=== PATIENT | female | born 1980 | race Caucasian/White ===

== ENCOUNTER 2017-03-06 21:13 | Observation (INO) ==
[2017-03-06] MEDS ORDERED: Nitroglycerin 0.4 MG TAB.SUBL SL ONE (21:46)
[2017-03-06] MEDS ORDERED: Aspirin 81 MG TAB.CHEW PO ONE (21:46)
--- NOTE | 2017-03-06 21:51 | Emergency Department Note ---
Disposition Clinical Impression: Chest heaviness, Swelling of lower extremity, Unstable angina Disposition: Admitted As Inpatient Condition: Fair Time of Disposition: 23:51 Chest Pain HPI - General Chief Complaint: ED Chest Pain Stated Complaint: chest heaviness, bilateral LE swelling Time Seen by Provider: 03/06/17 21:29 Source: patient Mode of arrival: ambulatory Limitations: no limitations Vital Signs Reviewed: Yes Nursing Notes Reviewed: Yes - History of Present Illness HPI Narrative: 36-year-old female history of COPD presents for evaluation of chest heaviness as well as bilateral lower extremity swelling. Notes chest heaviness since approximately today. Heaviness does not radiate. No nausea vomiting diaphoresis. Heaviness is worse with exertion and slightly resolves with rest. Patient reports some dyspnea. No fevers or cough. Does have history of COPD. Patient states she has had bilateral lower summary swelling for the past couple days. States that she did receive Lasix in the past however on a temporary basis. Denies history of recent travel. No active cancers. No history of DVT or PE. Denies history of heart attack. Severity scale (1-10): 4 - Related Data Home Medications Medication Instructions Recorded Confirmed Citalopram Hydrobromide [Celexa] 20 mg PO DAILY 03/07/17 03/07/17 OxyCODONE/APAP 10/325 [Percocet 1 each PO Q8HR PRN 03/07/17 03/07/17 10/325 MG] Pregabalin [Lyrica] 150 mg PO TID 03/07/17 03/07/17 PriLOSEC PO DAILY 03/07/17 carBAMazepine [Tegretol] 400 mg PO BID 03/07/17 03/07/17 Allergies Allergy/AdvReac Type Severity Reaction Status Date / Time codeine AdvReac Difficulty Verified 04/26/16 20:54 Breathing morphine AdvReac Difficulty Verified 03/07/17 03:41 Breathing NSAIDS (Non-Steroidal AdvReac See Verified 03/07/17 03:41 Anti-Inflamma Comments Sulfa (Sulfonamide AdvReac Difficulty Verified 04/26/16 20:54 Antibiotics) Breathing All systems ED: reviewed and negative except as stated. Constitutional: Reports: as per HPI. Denies: fever Eyes: Reports: as per HPI ENT ED: Reports: as per HPI Cardiovascular: Reports: as per HPI, chest pain Respiratory: Reports: as per HPI, dyspnea. Denies: cough, sputum production Gastrointestinal: Reports: as per HPI. Denies: nausea, vomiting Genitourinary: Reports: as per HPI Musculoskeletal: Reports: as per HPI, back pain Integumentary: Reports: as per HPI Neurological: Reports: as per HPI Psychiatric: Reports: as per HPI Endocrine: Reports: as per HPI Hematological/Lymphatic: Reports: as per HPI Allergic/Immunologic: Reports: as per HPI Chest Pain PMH - Past Medical History Medical history: Reports: kidney stones, myocardial infarction Psychiatric history: Reports: no psych history - Social History Smoking Status: Current every day smoker Alcohol use: Reports: rarely Drug use: Reports: none Physical Exam - General Limitations: no limitations General appearance: alert, in no apparent distress - Head Head exam: atraumatic, normocephalic - Eye Eye exam: Present: normal appearance, EOMI - ENT ENT exam: normal exam, normal oropharynx - Neck Neck exam: Present: normal inspection - Chest Chest inspection: Present: normal inspection, symmetric chest wall rise. Absent : tenderness - Respiratory Respiratory exam: Present: normal lung sounds bilaterally. Absent: respiratory distress - Cardiovascular Cardiovascular exam: Present: regular rate, normal rhythm - Abdominal Exam Abdominal exam: Present: soft, Non-Tender - Extremities Exam Extremities exam: Present: normal inspection, pedal edema (Trace bilateral) - Expanded Lower Extremity Exam Neurovascular/Tendon exam: Present: normal capillary refill - Back Exam Back exam: Present: normal inspection - Neurological Exam Neurological exam: Present: alert, oriented X3 - Skin Skin exam: Present: warm, dry, intact, normal color Course Course Narrative: Patient seen and examined. Patient appears in no acute distress. Patient will get cardiopulmonary evaluation. Patient's EKG does show some T-wave inversions in the anterior precordial leads. Appears somewhat similar to prior EKG however they appear more prominent on today's EKG. Patient symptoms started greater than 6 hours ago. Patient will get a troponin, chest x-ray labs. Given the EKG findings patient also get a d-dimer she is low risk. - Reevaluation(s) Reevaluation #1: Patient pain was relieved with 1 nitro. Time: 22:24 Reevaluation #2: Paged hospitalist. Awaiting callback. Time: 23:04 Reevaluation #3: Patient's resting comfortably. Patient is pain-free. Discussed plan of care. Patient is in agreement. Time: 23:48 Additional Reevaluation(s): 0109: Patient is requesting her home pain medicine for her knee. That was ordered. Patient awaiting admission to the floor. Vital Signs Temperature 97.9 F 03/06/17 21:14 Pulse Rate 65 03/06/17 21:14 Respiratory Rate 18 03/06/17 21:14 Blood Pressure 126/78 03/06/17 21:14 O2 Sat by Pulse Oximetry 100 03/06/17 21:14 Temperature 98.1 F 03/07/17 06:52 Pulse Rate 59 03/07/17 06:52 Respiratory Rate 16 03/07/17 06:52 Blood Pressure 116/78 03/07/17 06:52 O2 Sat by Pulse Oximetry 94 03/07/17 06:52 Oxygen Delivery Oxygen Delivery Room Air Chest Pain - MDM Narrative Medical decision making narrative: 36-year-old female with a history of COPD, obesity presents for evaluation of chest heaviness. Patient states she has had intermittent heaviness throughout the day. Notes worsening chest heaviness with exertion but does not completely resolve with rest. No nausea vomiting or diaphoresis. Patient also notes some dyspnea. Patient's EKG shows inverted T waves in V1 through V4. Patient had prior T-wave inversions but appear significantly worse with ST depression isolated in V3. Patient was given aspirin as well as 1 nitroglycerin. Patient states that her symptoms improved following one nitroglycerin. Patient also had a d-dimer which was ordered and negative. Patient is low risk [place]. D- dimer was ordered as the patient is low risk and has had anterior ischemic changes on EKG. Patient's troponin was negative. However the patient's been having intermittent chest heaviness and has not been constant for several hours. Patient's chest x-ray shows pulmonary venous congestion. Given the patient's symptoms as well as EKG changes and risk factors the patient's heart scores of 5 and recommended for further cardiac evaluation. Patient is agreeable with this plan of care. Patient was pain-free in the emergency department or to transfer to the hospital floor. - Lab Data Lab results reviewed: Yes I reviewed the patient's lab results. Result diagrams: 03/07/17 05:42 03/07/17 05:42 Lab Results 03/06/17 03/06/17 03/06/17 Range/Units 21:40 21:40 21:40 WBC 5.0 (4.3-11.1) K/mcL RBC 4.41 (3.82-4.97) M/mcL Hgb 13.3 (11.5-15.4) g/dL Hct 40.2 (35.3-44.9) % MCV 91.2 (83.0-100.0) fL MCH 30.2 (28.0-33.3) pg MCHC 33.1 (31.6-35.5) g/dL RDW 12.5 (11.5-14.5) % Plt Count 210 (140-400) K/mcL MPV 10.7 (9.4-12.4) fL Immature Gran % 0.2 (0-4) % Seg Neutrophils % 34.7 % Lymphocytes % 51.8 % Monocytes % 7.5 % Eosinophils % 4.6 % Basophils % 1.2 % Neutrophils # 1.8 (1.6-8.9) K/mcL Lymphocytes # 2.6 (0.6-4.6) K/mcL Monocytes # 0.4 (0.0-1.3) K/mcL Eosinophils # 0.2 (0.0-0.6) K/mcL Basophils # 0.1 (0.0-0.2) K/mcL D-Dimer 435 (0-500) ng/mLFEU Sodium (136-145) mEq/L Potassium (3.5-4.5) mEq/L Chloride (98-109) mEq/L Carbon Dioxide (19-29) mEq/L BUN (7-20) mg/dL Creatinine (0.57-1.11) mg/dL Est GFR ( Amer) (> 60) Est GFR (Non-Af Amer) (> 60) BUN/Creatinine Ratio (6-26) Glucose (70-99) mg/dL Calculated Osmolality (280-300) Calcium (8.6-10.8) mg/dL Troponin I (0-0.03) ng/mL B-Natriuretic Peptide 52 (0-100) pg/mL 03/06/17 03/06/17 Range/Units 21:40 21:40 WBC (4.3-11.1) K/mcL RBC (3.82-4.97) M/mcL Hgb (11.5-15.4) g/dL Hct (35.3-44.9) % MCV (83.0-100.0) fL MCH (28.0-33.3) pg MCHC (31.6-35.5) g/dL RDW (11.5-14.5) % Plt Count (140-400) K/mcL MPV (9.4-12.4) fL Immature Gran % (0-4) % Seg Neutrophils % % Lymphocytes % % Monocytes % % Eosinophils % % Basophils % % Neutrophils # (1.6-8.9) K/mcL Lymphocytes # (0.6-4.6) K/mcL Monocytes # (0.0-1.3) K/mcL Eosinophils # (0.0-0.6) K/mcL Basophils # (0.0-0.2) K/mcL D-Dimer (0-500) ng/mLFEU Sodium 141 (136-145) mEq/L Potassium 3.7 (3.5-4.5) mEq/L Chloride 105 (98-109) mEq/L Carbon Dioxide 32 H (19-29) mEq/L BUN 6 L (7-20) mg/dL Creatinine 0.73 (0.57-1.11) mg/dL Est GFR ( Amer) > 60 (> 60) Est GFR (Non-Af Amer) > 60 (> 60) BUN/Creatinine Ratio 8 (6-26) Glucose 84 (70-99) mg/dL Calculated Osmolality 289 (280-300) Calcium 8.8 (8.6-10.8) mg/dL Troponin I 0.00 (0-0.03) ng/mL B-Natriuretic Peptide (0-100) pg/mL - Radiology Data Radiology results reviewed: Yes I reviewed the patient's radiology results. Chest X-Ray 03/06/17 21:46 IMPRESSION: Pulmonary findings suggestive of either airway inflammation or mild pulmonary venous congestion. D/ / 03/06/2017 22:48:08 Westley Lovelace MD / bcarter Interpreting Provider: Westley Lovelace MD - EKG Data EKG attestation: Yes I reviewed and interpreted this EKG. EKG shows normal: sinus rhythm Rate: normal Rhythm: NSR [place]/QRS: normal, RBBB, IVCD ST segment depression in: v3 T wave inversions noted in: aVR, v1, v2, v3, v4 Interpretation: no acute changes, unchanged when compared to prior tracing (date ) (2008), nonspecific ST-T wave changes Heart Score - Score History: Highly Suspicious EKG: Significant ST-Depression Age: Less than 45 Risk Factors: 1-2 risk factors Troponin: Less than normal limit HEART Score Total: 5 S.B.ABarbara. - S.Alia.Basilio Situation: Demographics Background: Presenting Complaint Assessment: Vital Signs, Course and respsone to treatment, Pertinant Lab Results Recommendation: Barrier(s) to disposition, Recommendation based on pending studies, treatments, or consults S.B.A.RMckenna Report Given to: Dr. Haim Mireles Repor Time: 00:54 Attestation Statement - Attestation Attestation: I, Diogenes Hirsch MD, personally evaluated this patient and discussed their management with the resident physician. I reviewed the resident's note and agree with the documented findings, medical decision making, and plan of care. 36-year-old female presents to the emergency department with complaint of some substernal chest pressure all day today. The discomfort radiates to the back. There has been some shortness of breath. Some mild nausea but no vomiting. No diaphoresis. No prior cardiac history. Patient does also complain of some swelling of the lower extremities recently and was placed on low-dose Lasix by her PCP with improvement however over the past few days she has had increased swelling in her feet and ankles up to the knees also swelling in her hands and face. On examination patient is a well-developed obese female in no acute distress. She is alert and oriented 3. There is no cyanosis or diaphoresis. Chest is nontender to palpation. Breath sounds are clear and equal bilaterally. Heart regular rate and rhythm. Abdomen soft and nontender with normal bowel sounds. 1+ pedal edema. EKG does show some anterior ST segment depression and T-wave inversion. D- dimer normal. Troponin normal. Chest x-ray consistent with airway inflammation or pulmonary venous congestion. The hospitalist, Dr. Whitmore, was consulted and accepted admission of the patient.
[2017-03-06 22:32] LABS: BUN/Creatinine Ratio 8 (6-26); Blood Urea Nitrogen 6 mg/dL (7-20); Calcium 8.8 mg/dL (8.6-10.8); Carbon Dioxide 32 mEq/L (19-29); Chloride 105 mEq/L (98-109); Glucose 84 mg/dL (70-99); Osmolality,Calculated 289 (280-300); Potassium 3.7 mEq/L (3.5-4.5); Sodium 141 mEq/L (136-145); eGFR For African Americans > 60 (> 60); eGFR For Non-African Americans > 60 (> 60)
[2017-03-06 22:33] LABS: Basophils # 0.1 K/mcL (0.0-0.2); Basophils % 1.2 %; Eosinophils # 0.2 K/mcL (0.0-0.6); Eosinophils % 4.6 %; Hematocrit 40.2 % (35.3-44.9); Hemoglobin 13.3 g/dL (11.5-15.4); Immature Granulocytes % 0.2 % (0-4); Lymphocytes # 2.6 K/mcL (0.6-4.6); Lymphocytes % 51.8 %; Mean Corpuscular HGB Conc 33.1 g/dL (31.6-35.5); Mean Corpuscular Hemoglobin 30.2 pg (28.0-33.3); Mean Corpuscular Volume 91.2 fL (83.0-100.0); Mean Platelet Volume 10.7 fL (9.4-12.4); Monocytes # 0.4 K/mcL (0.0-1.3); Monocytes % 7.5 %; Neutrophils # 1.8 K/mcL (1.6-8.9); Platelet Count 210 K/mcL (140-400); Red Blood Count 4.41 M/mcL (3.82-4.97); Red Cell Distribution Width 12.5 % (11.5-14.5); Segmented Neutrophils % 34.7 %
[2017-03-07] MEDS ORDERED: *HR* HYDROcodone/Acet 10/325 mg TABLET PO ONE (01:09)
--- NOTE | 2017-03-07 03:20 | Internal Med History&Physical ---
Date of Encounter: 03/07/17 Time of Encounter: 03:10 Assessment and Plan (1) Chest pain Current visit: Yes Status: Acute Atypical chest pain - rule out ACS Continue aspirin and statin, nitroglycerin when necessary EKG - sinus rhythm with no acute ST-T changes, T inversion in anterior leads Troponin - negative, trend Chest x-ray - mild pulmonary congestion BN peptide - 52 D-dimer - 435 Echocardiogram and stress test pending Cardiac telemetry, labs in a.m. Qualifiers: Chest pain type: unspecified Qualified Code(s): R07.9 - Chest pain, unspecified (2) Depression with anxiety Current visit: Yes Status: Chronic Continue Celexa (3) Tobacco abuse Current visit: Yes Status: Chronic Counseled about cessation, nicotine patch (4) DVT prophylaxis Current visit: Yes Status: Acute Continue heparin subcutaneous Internal Medicine - H&P: HPI Chief complaint: Chest pain Admitted From: Emergency Dept Plans for Post Hospital Care: Home History of present illness: Ms. Britt is a 36 year old female with past medical history of chronic back pain, anxiety, depression, questionable history of [place] and GERD. She presents to the ED with complaints of left-sided chest pain. On examination patient is awake and alert. Not in any distress. Able to provide history. No family members at bedside. Patient states pain started earlier in the day when she was at home. Describes pain as chest pressure. Mainly on the left side, radiating to the back. Patient states his pain was almost constant. It is only relieved after she came to the ED. No aggravating or alleviating factors. Patient also complains of worsening bilateral lower leg edema. Patient denies shortness of breath, denies palpitations, denies vomiting or diarrhea or fever or headache or dizziness. No other associated symptoms. Initial workup in the ED is negative. Patient is being admitted for chest pain to rule out ACS. She will be continued on aspirin and statin. She will be on nitroglycerin when necessary. Echocardiogram and stress test are pending. Patient has been explained about her condition and plan of care. Understood and agreed. No unanswered questions. CODE STATUS full code. Past Med Surg Social Fam HX - Past Medical History Medical history: arthritis, kidney stones, myocardial infarction Psychiatric history: anxiety, depression - Past Surgical History Surgical History: cholecystectomy, knee replacement - Social History Smoking Status: Current every day smoker Packs per day: 1 Smokeless Tobacco Status: No Alcohol use: none Drug use: none - Family History Mother Name: Lake Britt Age: 58 Living Status: Still Living Hx Family Cardiac Disorders: No Hx Family Respiratory Disorders: Yes (COPD) Hx Family Cancer: No Hx Family GI Disorders: Yes (IBS) Hx Family Genitourinary Disorders: No Hx Family Endocrine Disorder: Yes (DM) Hx Family Musculoskeletal Disorders: No Hx Family Neuromuscular Disorders: No Hx Family Neurologic Disorders: No Hx Family HEENT Disorders: No Hx Family Autoimmune Disorders: No Hx Family Reproductive Disorders: No Hx Family Psychosocial Disorders: Yes (Bipolar) Hx Family Medical Disorders: No Internal Medicine - H&P: Meds Citalopram Hydrobromide [Celexa] 20 mg PO DAILY 03/07/17 [History] OxyCODONE/APAP 10/325 [Percocet 10/325 MG] 1 each PO Q8HR PRN 03/07/17 [History] Pregabalin [Lyrica] 150 mg PO TID 03/07/17 [History] PriLOSEC PO DAILY 03/07/17 [History] carBAMazepine [Tegretol] 400 mg PO BID 03/07/17 [History] Allergies codeine Adverse Reaction (Verified 04/26/16 20:54) Difficulty Breathing morphine Adverse Reaction (Verified 03/07/17 03:41) Difficulty Breathing NSAIDS (Non-Steroidal Anti-Inflamma Adverse Reaction (Verified 03/07/17 03:41) See Comments Sulfa (Sulfonamide Antibiotics) Adverse Reaction (Verified 04/26/16 20:54) Difficulty Breathing All Systems PM: A 10-system review of systems was performed and is negative for pertinent findings except as documented above in the HPI. - Constitutional Constitutional: fatigue, weakness, no fever(s) - EENT Eyes: no blurry vision - Cardiovascular Cardiovascular ROS IM: chest pain, edema, no dyspnea, no dyspnea on exertion, no lightheadedness, no orthopnea, no syncope - Respiratory Respiratory: no cough, no dyspnea, no hemoptysis, no dyspnea on exertion, no wheezing, no chest congestion - Gastrointestinal Gastrointestinal: no abdominal pain, no belching, no bloating, no cramping, no diarrhea, no hematochezia, no melena, no nausea, no vomiting - Genitourinary Genitourinary: no dysuria - Musculoskeletal Musculoskeletal ROS IM: back pain - Neurological Neurological ROS: no abnormal gait, no abnormal speech, no dizziness, no memory loss, no numbness, no tingling - Constitutional Vitals: Temp Pulse Resp BP Pulse Ox 98.0 F 60 16 113/67 98 03/07/17 02:39 03/07/17 02:39 03/07/17 02:39 03/07/17 02:39 03/07/17 02:39 General appearance: Present: A&O X 3, pleasant, no acute distress, answers questions appropriately - Head Head exam: Present: atraumatic - Eye Eye exam: Present: EOMI - Neck Neck exam general surgery: Present: supple - Respiratory Respiratory exam: Present: CTAB. Absent: accessory muscle use, rales, rhonchi, stridor, wheezes, tachypnea - Cardiovascular Cardiovascular exam: Present: RRR, +S1, +S2 - GI/Abdominal GI/Abdominal exam: Present: soft, no peritoneal signs. Absent: distended, firm , guarding, rigid, tenderness - Extremities Exam Extremities exam: Present: pedal edema (Trace bilateral), radial pulses palpable and symetrical. Absent: cyanotic, tenderness - Neurological Exam Neurological exam: Present: alert, oriented X3, no focal deficits. Absent: facial droop, speech deficit Internal Med - H&P Results - Labs CBC & Chem 7: 03/06/17 21:40 03/06/17 21:40
[2017-03-07] MEDS ORDERED: *HR* Morphine 2 MG/ML SYRINGE IVP PRN (03:21)
[2017-03-07] MEDS ORDERED: Naloxone 0.4 MG/ML INJ IVP PRN (03:21)
[2017-03-07] MEDS ORDERED: Acetaminophen 325 MG TABLET PO PRN (03:21)
[2017-03-07] MEDS ORDERED: Ondansetron 4 MG/2 ML VIAL IVP PRN (03:21)
[2017-03-07] MEDS: *HR* OxyCODONE/APAP 10/325 TABLET PO PRN ×3 (04:25→21:36)
[2017-03-07] MEDS ORDERED: Nitroglycerin 0.4 MG TAB.SUBL SL PRN (04:36)
[2017-03-07 06:38] LABS: Basophils # 0.1 K/mcL (0.0-0.2); Basophils % 1.1 %; Eosinophils # 0.2 K/mcL (0.0-0.6); Eosinophils % 3.8 %; Hematocrit 38.6 % (35.3-44.9); Hemoglobin 12.8 g/dL (11.5-15.4); Immature Granulocytes % 0.2 % (0-4); Lymphocytes # 2.4 K/mcL (0.6-4.6); Lymphocytes % 51.5 %; Mean Corpuscular HGB Conc 33.2 g/dL (31.6-35.5); Mean Corpuscular Hemoglobin 29.8 pg (28.0-33.3); Mean Platelet Volume 10.7 fL (9.4-12.4); Monocytes # 0.3 K/mcL (0.0-1.3); Monocytes % 7.2 %; Neutrophils # 1.7 K/mcL (1.6-8.9); Platelet Count 193 K/mcL (140-400); Red Blood Count 4.29 M/mcL (3.82-4.97); Red Cell Distribution Width 12.5 % (11.5-14.5); Segmented Neutrophils % 36.2 %
[2017-03-07 06:39] LABS: INR 0.9; Prothrombin Time 10.1 Seconds (9.4-12.1)
[2017-03-07] MEDS: *HR* Heparin 5,000 UNIT/ML VIAL SQ SCH ×2 (06:40→18:11)
[2017-03-07 06:56] LABS: BUN/Creatinine Ratio 9 (6-26); Blood Urea Nitrogen 6 mg/dL (7-20); Calcium 8.8 mg/dL (8.6-10.8); Carbon Dioxide 30 mEq/L (19-29); Chloride 106 mEq/L (98-109); Glucose 78 mg/dL (70-99); Osmolality,Calculated 288 (280-300); Potassium 3.7 mEq/L (3.5-4.5); Sodium 141 mEq/L (136-145); eGFR For African Americans > 60 (> 60); eGFR For Non-African Americans > 60 (> 60)
[2017-03-07] MEDS ORDERED: Regadenoson 0.4 MG/5 ML SYRINGE IVP ONE (11:39)
[2017-03-07] MEDS: Aspirin 81 MG TAB.CHEW PO SCH (13:16)
[2017-03-07] MEDS: Famotidine 20 MG TABLET PO SCH ×2 (13:16→21:35)
[2017-03-07] MEDS: Pregabalin 75 MG CAPSULE PO SCH ×3 (13:16→21:34)
[2017-03-07] MEDS: carBAMazepine 200 MG TABLET PO SCH ×2 (13:16→21:34)
[2017-03-07] MEDS: Nicotine 21 MG PATCH.TD24 TD SCH (13:17)
--- NOTE | 2017-03-07 15:15 | Nuclear Medicine Stress Report ---
Regadenoson Nuclear Stress Name: Madhuri Britt Date of Study: 03/07/2017 Date: 1980 Ht: 69.0 in Medical Record#: [id number] Age: 36 Wt: 200.0 lb Gender: Female Order #: [id number] Location: [facility] Room: [facility] Supervising Provider: Noreen Britt CNP Reading Physician: Maximiliano Salamanca MD, [facility] Ordering Physician: [place] Washington CNP Primary Care Physician: Mis Drake CNP Stress Technologist: Raquel Cummings, [employer], CCT, CPFT Applications Packager: Monty Acuña Indications: Chest Pain Impression: Pharmacologic stress ECG is non-diagnostic due to baseline ST-T wave abnormality. Study quality was fair. This is a high level of subdiaphragmatic uptake which affects image quality. Gated LVEF = 68%. Medium sized, moderate intensity, partially reversible perfusion defect involving the basal-mid anterior wall. There appears to be some breast attenuation artifact, however, perfusion worsens with stress particularly in the basal anterior wall. Findings are suggestive of reversible ischemia involving the basal-mid anterior wall. There is a small area of focal uptake which appears to be in the right breast. Consider further imaging (such as mammogram) to further evaluate if clinically indicated. Abnormal results were discussed with the ordering provider. History: History of Smoking Stress Test Summary: Stress Test Type: Pharmacologic Regadenoson 0.4mg/5ml given IV Baseline Information: Initial Heart Rate: 56 Blood Pressure: 112/64 Stress Information: Test Terminated Due to (primary): As per protocol Maximum Blood Pressure: 118/60 Maximum Heart Rate: 105 Percent Maximum Heart Rate Achieved: 58 Double Product: [id number] Symptoms: Shortness of breath Nuclear Summary: SPECT myocardial perfusion imaging using [id number] Sestamibi given intravenously was performed at rest and following cardiac stress testing. The resting images were obtained following initial dose of 11.7 mCi. Following stress an additional dose of 32.4 mCi was given at peak exercise or 30 seconds post regadenoson infusion. Findings: Stress Note * Resting ECG demonstrated sinus bradycardia, incomplete RBBB, anterior ST-T wave abnormality. * No baseline arrhythmias were noted. * Patient had no chest pain during stress. * No arrhythmias were noted during stress. * Pharmacologic stress ECG is non-diagnostic due to baseline ST-T wave abnormality. Hemodynamic responses * Normal hemodynamic responses to pharmacologic stress. Study Quality * Study quality was fair. This is a high level of subdiaphragmatic uptake which affects image quality. Gated EF % * Gated LVEF = 68%. Left Ventricle * The left ventricle is not dilated. * Medium sized, moderate intensity, partially reversible perfusion defect involving the basal-mid anterior wall. There appears to be some breast attenuation artifact, however, perfusion worsens with stress particularly in the basal anterior wall. * Findings are suggestive of possible reversible ischemia. * All other segmental perfusion normal in rest and stress. TID * No evidence of transient ischemic dilatation. Lung Uptake * There is a small area of focal uptake which appears to be in the right breast. Consider further imaging (such as mammogram) to further evaluate if clinically indicated. Updated by Maximiliano Salamanca MD, FACC on 03/07/2017 3:08:58 PM electronically signed on 03/07/2017 3:10:01 PM with status of Final
--- NOTE | 2017-03-07 17:38 | Event Note ---
Date of Encounter: 03/07/17 Time of Encounter: 13:25 Patient was seen and assessed at about 1:25 PM. Patient is an exceptionally pleasant female who reports that she is not having chest pain at this time. She does complain of constant peripheral edema, including her face, that has become concerning to her. Her family states that she is sedentary and lays around a lot. Patient states that she feels fatigued a lot of the time. We discussed low-sodium diet, increasing fluid intake, exercise and diet to assist with reducing edema. I will order SHIVANI campa and Lasix for her. Patient had a stress test that showed Gated LVEF = 68%. Medium sized, moderate intensity, partially reversible perfusion defect involving the basal-mid anterior wall. There appears to be some breast attenuation artifact, however, perfusion worsens with stress particularly in the basal anterior wall. Findings are suggestive of reversible ischemia involving the basal-mid anterior wall. There is a small area of focal uptake which appears to be in the right breast. Consider further imaging (such as mammogram) to further evaluate if clinically indicated. I discussed her stress test results with her. Cardiology has not been into see her yet. She is aware that she will stay overnight tonight. I also discussed the questionable finding in her breast. She denies known fibrocystic disease and has not had a mammogram. She will follow up outpatient at [facility]. She also reports 10/10 chronic left knee pain. She is to have surgery to have a replacement done. She states that she takes Percocet 10 mg at home 4 times a day. It is verified on her home medication list that she takes it every 8 hours, or 3 times daily. She also reports a frontal headache. She has multiple allergies, however, she does say that she can take Aleve as long as it is the prescription strength, not the one over-the- counter. Physical exam is unremarkable other than +2-3 nonpitting edema and bilateral lower extremities. Patient states this is normal for her. She does have Lasix to take at home when necessary. Her lungs are clear and diminished. She is a smoker and is currently denying need for nicotine patches or any smoking cessation materials or tools. She has no anterior or posterior cervical adenopathy, no carotid bruits, her neck is supple there is no thyromegaly. Lungs are clear anteriorly and posteriorly, diminished. There is no stridor, wheezing, rhonchi, Rales. S1 and S2 is heard without gallops, clicks, murmurs. Her abdomen is soft and nontender, rounded, bowel sounds are present. Is nontender to palpation. She is alert and oriented and her speech is clear. She has movement of all 4 extremities. Patient is waiting on cardiology to see her to determine her plan of care. She is aware that if she needs medical management, she will go home tomorrow. If she has a heart cath, she will go home on Thursday unless there is a stent placed. We will continue her normal home medications for pain, GERD, and depression. We have added aspirin and a statin. She will go home with these. I will also write an outpatient order for her to have a mammogram with results to her primary care provider. Will continue telemetry and monitor labs and vital signs overnight. [facility] pending cardiology consult.
--- NOTE | 2017-03-07 18:09 | Cardiology Consult Note ---
Date of Encounter: 03/07/17 Time of Encounter: 17:00 Assessment and Plan (1) Chest heaviness Current Visit: Yes Status: Acute Per cardiology: -Patient presents with chest pressure. -Troponin negative x3. -ECG with T wave inversion, incomplete bundle branch block. Patient reports abnormal ECG not new for her and had LHC 1 year ago in [place] for abnormal ECG with no intervention needed. -Denies current chest pressure/heaviness. -Nuclear stress 03/07/17 with gated LVEF 68%, medium sized, moderate intensity, partially reversible perfusion defect involving basal-mid anterior wall. There appears to be some breast attenuation atrifact, however perfusion worsens with stress particularly in basal anterior wall. Small area of focal uptake appears to be in right breast. Further imaging such as mammogram recommended. -ON asa, statin. -Will obtain [facility] report from one year ago. -Statin changed to atorvastatin. -Unable to add beta zainab due to bradycardia and hypotension. -Patient educated on need for mammogram. -Discussed at length with patient regarding medical management and close outpatient follow up with cardiology. Patient agreeable for medical management and states she will follow with cardiology in outpatient setting. (2) Tobacco abuse Current Visit: Yes Status: Chronic Per cardiology: -KNown tobacco abuse with smoking 1ppd for 15 years. -I spent 3 minutes reviewing smoking cessation education with patient. Discussion w patient/family: The assessment and plan as outlined above was discussed with the patient and/or family members who expressed understanding and agreement. All questions were answered. Thank you for involving us in the care of your patient. Please call with any questions. Discussed and reviewed with . History of Present Illness Consult date: 03/07/17 Requesting physician: Maine Washington Consult reason: abnormal stress test Chief complaint: peripheral edema, chest pain History of present illness: Ms. Britt is a 36 year old female with a relevant past medical history fo smoking. Patient has family history of CAD with father having stents at age 50. Patient presented to [facility] with complaints of peripheral edema in her hands, feet , and face. Patient also reported some chest pressure. Patient states pain was midsternal with no radiation. Patient states pain occured at rest. Patient denies aggravating or alleviating factors. Stress test was obtained and noted to be abnormal. Cardiology has been consulted. Patient denies shortness of breath or increased fatigue. Patient reports had LHC one year ago at a hospital in [place] where she used to live. Patient states everything was "ok" on LHC and no intervention was needed. Past Med Surg Social Fam HX - Past Medical History Attestation: Yes The following information was validated with the patient. Source: patient, old records reviewed, obtained from family Medical history: kidney stones, myocardial infarction Psychiatric history: no psych history - Past Surgical History Surgical History: cholecystectomy, knee replacement - Social History Smoking Status: Current every day smoker Packs per day: 1 Smokeless Tobacco Status: No Alcohol use: rarely Drug use: none - Family History Mother Name: Lake Britt Age: 58 Living Status: Still Living Hx Family Cardiac Disorders: No Hx Family Respiratory Disorders: Yes (COPD) Hx Family Cancer: No Hx Family GI Disorders: Yes (IBS) Hx Family Genitourinary Disorders: No Hx Family Endocrine Disorder: Yes (DM) Hx Family Musculoskeletal Disorders: No Hx Family Neuromuscular Disorders: No Hx Family Neurologic Disorders: No Hx Family HEENT Disorders: No Hx Family Autoimmune Disorders: No Hx Family Reproductive Disorders: No Hx Family Psychosocial Disorders: Yes (Bipolar) Hx Family Medical Disorders: No Medications and Allergies Butalb/Acetaminophen/Caffeine [Esgic Capsule] 1 tab PO Q6H PRN 03/07/17 [History ] Citalopram Hydrobromide [Celexa] 20 mg PO DAILY 03/07/17 [History] Furosemide [Lasix] 20 mg PO DAILY PRN 03/07/17 [History] Indomethacin [Indocin] 25 mg PO TID 03/07/17 [History] Mirtazapine [Remeron] 15 mg PO HS 03/07/17 [History] Omeprazole [PriLOSEC] 20 mg PO DAILY 03/07/17 [History] OxyCODONE/APAP 10/325 [Percocet 10/325 MG] 1 tab PO Q8HR PRN 03/07/17 [History] Potassium Chloride [K-Tab ER] 20 meq PO DAILY 03/07/17 [History] Pregabalin [Lyrica] 150 mg PO TID 03/07/17 [History] Riboflavin [Vitamin B-2] 400 mg PO DAILY 03/07/17 [History] carBAMazepine [Tegretol Xr] 400 mg PO BID 03/07/17 [History] clonazePAM [Klonopin] 0.5 mg PO BID PRN 03/07/17 [History] Allergies codeine Adverse Reaction (Verified 04/26/16 20:54) Difficulty Breathing morphine Adverse Reaction (Verified 03/07/17 03:41) Difficulty Breathing NSAIDS (Non-Steroidal Anti-Inflamma Adverse Reaction (Verified 03/07/17 03:41) See Comments Sulfa (Sulfonamide Antibiotics) Adverse Reaction (Verified 04/26/16 20:54) Difficulty Breathing All Systems Review: A 10-system review of systems was performed and is negative for pertinent findings except as documented above in the HPI. - Cardiovascular Cardiovascular: as per HPI, chest pain at rest Physical Examination Vital Signs, Last 4 Hours Temp Pulse Resp BP Pulse Ox 03/07/17 15:50 98.0 F 54 16 99/60 96 General: Conversant, No Apparent Distress HEENT: Atraumatic, Normocephaly, Mucus Membranes Moist Neck: No JVD, Normal carotid pulses Cardiac: Reg Rate and Rhythm, Normal S1 and S2, No Murmur Lungs: Normal Breath Sounds, No Wheeze, Rales, Rhonchi Neuro: Alert and responsive, No focal deficits noted Abdomen: Soft, Non-Tender Skin: No rashes noted on visualized skin Musculoskeletal: No Chest Wall Tenderness Extremities: No Clubbing, No Cyanosis, Normal Pulses, Other (Mild edema noted to hands, feet, and face. ) Results 03/07/17 05:42 03/07/17 05:42 Lab Results Impressions Chest X-Ray 03/06/17 21:46 IMPRESSION: Pulmonary findings suggestive of either airway inflammation or mild pulmonary venous congestion. D/ / 03/06/2017 22:48:08 Westley Lovelace MD / bcarter Interpreting Provider: Westley Lovelace MD Active Medications Acetaminophen (Tylenol) 650 mg PO Q6HR PRN PRN Reason: Mild Pain (1-3) Stop: 09/06/17 03:22 Aspirin (Aspirin) 81 mg PO DAILY INGRID Stop: 09/06/17 09:01 Last Admin: 03/07/17 13:16 Dose: 81 mg Atorvastatin Calcium (Lipitor) 40 mg PO HS INGRID Stop: 09/06/17 21:01 Carbamazepine (Tegretol) 400 mg PO BID INGRID PRN Reason: Protocol Stop: 09/06/17 09:01 Last Admin: 03/07/17 13:16 Dose: 400 mg Citalopram Hydrobromide (Celexa) 20 mg PO DAILY PENDING SALE TO [facility] Stop: 09/06/17 09:01 Last Admin: 03/07/17 13:16 Dose: 20 mg Famotidine (Pepcid) 20 mg PO BID PENDING S[facility] TO [facility] Stop: 09/06/17 09:01 Last Admin: 03/07/17 13:16 Dose: 20 mg Furosemide (Lasix) 20 mg PO DAILY PENDING S[facility] TO [facility] Stop: 09/06/17 17:46 Last Admin: 03/07/17 18:11 Dose: 20 mg Heparin Sodium (Porcine) (Heparin) 5,000 unit SQ Q12HCO PENDING SALE TO [facility] Stop: 09/06/17 06:01 Last Admin: 03/07/17 18:11 Dose: 5,000 unit Naloxone HCl (Narcan) 0.4 mg IVP Q2MIN PRN PRN Reason: Opioid Reversal Stop: 09/06/17 03:22 Naproxen (Naprosyn) 250 mg PO BID PRN; Protocol PRN Reason: Headache Stop: 09/06/17 21:01 Nicotine (Nicoderm) 21 mg TD DAILY PENDING S[facility] TO [facility] PRN Reason: Protocol Stop: 09/06/17 09:01 Last Admin: 03/07/17 13:17 Dose: Not Given Nitroglycerin (Nitroglycerin) 0.4 mg SL Q5MIN PRN PRN Reason: Chest Pain Stop: 09/06/17 04:37 Ondansetron HCl (Zofran) 4 mg IVP Q8HR PRN PRN Reason: Nausea And Vomiting Stop: 09/06/17 03:22 Oxycodone/Acetaminophen (Percocet 10/325) 1 each PO Q8HR PRN PRN Reason: Pain Stop: 09/06/17 03:44 Last Admin: 03/07/17 13:16 Dose: 1 each Pregabalin (Lyrica) 150 mg PO TID PENDING SALE TO [facility] Stop: 09/06/17 09:01 Last Admin: 03/07/17 14:21 Dose: Not Given Laboratory Tests 03/06/17 03/06/17 03/07/17 21:40 21:40 05:42 Hgb Creatinine Troponin I 0.00 0.00 B-Natriuretic Peptide 52 03/07/17 03/07/17 03/07/17 05:42 05:42 09:14 Hgb 12.8 Creatinine 0.69 Troponin I 0.00 B-Natriuretic Peptide - Imaging and Cardiology Chest Xray: report reviewed Stress Test: report reviewed - EKG Interpretation EKG results cardiology: personally reviewed (ECG reviewed from stress lab with sinus bradycardia, HR 56. T wave inversions noted in V1, V2. Incomplete bundle branch block noted.), other (Telemetry reviewed with average HR 59, sinus bradycardia. PVCs and PACs noted.) Consult Discharge Plan - Plan Referrals: Mis Drake CNP [Primary Care Provider] -
[2017-03-07] MEDS: Furosemide 20 MG TABLET PO SCH (18:11)
[2017-03-07] MEDS: Isosorbide MONOnitrate (24 HR) 30 MG TAB.ER.24H PO SCH (21:35)
[2017-03-08] MEDS: *HR* Heparin 5,000 UNIT/ML VIAL SQ SCH (06:11)
[2017-03-08] MEDS: carBAMazepine 200 MG TABLET PO SCH (07:58)
[2017-03-08] MEDS: Isosorbide MONOnitrate (24 HR) 30 MG TAB.ER.24H PO SCH (07:59)
[2017-03-08] MEDS: Furosemide 20 MG TABLET PO SCH (07:59)
[2017-03-08] MEDS: Nicotine 21 MG PATCH.TD24 TD SCH (07:59)
[2017-03-08] MEDS: Pregabalin 75 MG CAPSULE PO SCH (07:59)
[2017-03-08] MEDS: Aspirin 81 MG TAB.CHEW PO SCH (07:59)
[2017-03-08] MEDS: Famotidine 20 MG TABLET PO SCH (07:59)
[2017-03-08 10:01] LABS: Basophils % 0.6 %; Eosinophils # 0.2 K/mcL (0.0-0.6); Eosinophils % 4.5 %; Hematocrit 37.3 % (35.3-44.9); Hemoglobin 12.6 g/dL (11.5-15.4); Immature Granulocytes % 0.2 % (0-4); Lymphocytes # 1.9 K/mcL (0.6-4.6); Lymphocytes % 39.5 %; Mean Corpuscular HGB Conc 33.8 g/dL (31.6-35.5); Mean Corpuscular Hemoglobin 30.4 pg (28.0-33.3); Mean Corpuscular Volume 90.1 fL (83.0-100.0); Mean Platelet Volume 10.8 fL (9.4-12.4); Monocytes # 0.4 K/mcL (0.0-1.3); Monocytes % 7.5 %; Neutrophils # 2.2 K/mcL (1.6-8.9); Platelet Count 188 K/mcL (140-400); Red Blood Count 4.14 M/mcL (3.82-4.97); Red Cell Distribution Width 12.6 % (11.5-14.5); Segmented Neutrophils % 47.7 %
[2017-03-08 10:15] LABS: BUN/Creatinine Ratio 9 (6-26); Blood Urea Nitrogen 7 mg/dL (7-20); Calcium 8.7 mg/dL (8.6-10.8); Carbon Dioxide 30 mEq/L (19-29); Chloride 104 mEq/L (98-109); Glucose 126 mg/dL (70-99); Osmolality,Calculated 290 (280-300); Potassium 3.5 mEq/L (3.5-4.5); Sodium 140 mEq/L (136-145); eGFR For African Americans > 60 (> 60); eGFR For Non-African Americans > 60 (> 60)
--- NOTE | 2017-03-08 12:35 | Discharge Summary ---
Date of Encounter: 03/08/17 Time of Encounter: 11:30 - Discharge Diagnosis (1) Chest pain Priority: Primary Status: Acute Comments: Patient stress test yesterday that showed normal EF of 60% with probable reversible ischemia involving basal to mid anterior wall. Patient tells cardiology that she had an LHC yesterday that showed no significant blockages. Cardiology has recommended an initial trial of medical management including aspirin 81 mg, statin 40 mg daily, and Imdur 30 mg daily. She is to follow up outpatient with cardiology in 1-2 weeks. If her symptoms persist, elective outpatient LHC would be considered. Qualifiers: Chest pain type: chest pain due to myocardial ischemia Qualified Code(s): I20.9 - Angina pectoris, unspecified (2) Depression with anxiety Priority: Secondary Status: Chronic Comments: Chronic. Continue home medications. (3) DVT prophylaxis Priority: Secondary Status: Acute Comments: Heparin subcutaneous daily. (4) Tobacco abuse Priority: Secondary Status: Chronic Comments: Patient has been using nicotine patches. Will prescribe patches for home. (5) Mass of breast, right Priority: Secondary Status: Suspected Comments: Per stress test yesterday, there is a small area of focal uptake which appears to be in the right breast. We will write a prescription for patient have a mammogram at [facility] in [place] with results to primary care provider, Mis Drake CNP. - Discharge Medications Prescriptions: Aspirin 81 mg PO DAILY #30 tab Atorvastatin [Lipitor] 40 mg PO HS #30 tab Isosorbide MONOnitrate (24 HR) [Imdur] 30 mg PO DAILY #30 tab Nicotine Patch [Nicoderm] 21 mg TD DAILY #28 patch Home Medications: Butalb/Acetaminophen/Caffeine [Esgic Capsule] 1 tab PO Q6H PRN 03/07/17 [History ] Citalopram Hydrobromide [Celexa] 20 mg PO DAILY 03/07/17 [History] Furosemide [Lasix] 20 mg PO DAILY PRN 03/07/17 [History] Indomethacin [Indocin] 25 mg PO TID 03/07/17 [History] Mirtazapine [Remeron] 15 mg PO HS 03/07/17 [History] Omeprazole [PriLOSEC] 20 mg PO DAILY 03/07/17 [History] OxyCODONE/APAP 10/325 [Percocet 10/325 MG] 1 tab PO Q8HR PRN 03/07/17 [History] Potassium Chloride [K-Tab ER] 20 meq PO DAILY 03/07/17 [History] Pregabalin [Lyrica] 150 mg PO TID 03/07/17 [History] Riboflavin [Vitamin B-2] 400 mg PO DAILY 03/07/17 [History] carBAMazepine [Tegretol Xr] 400 mg PO BID 03/07/17 [History] clonazePAM [Klonopin] 0.5 mg PO BID PRN 03/07/17 [History] Aspirin 81 mg PO DAILY #30 tab 03/08/17 [Rx] Atorvastatin [Lipitor] 40 mg PO HS #30 tab 03/08/17 [Rx] Isosorbide MONOnitrate (24 HR) [Imdur] 30 mg PO DAILY #30 tab 03/08/17 [Rx] Nicotine Patch [Nicoderm] 21 mg TD DAILY #28 patch 03/08/17 [Rx] Allergies/Adverse Reactions: Allergies codeine Adverse Reaction (Verified 04/26/16 20:54) Difficulty Breathing morphine Adverse Reaction (Verified 03/07/17 03:41) Difficulty Breathing NSAIDS (Non-Steroidal Anti-Inflamma Adverse Reaction (Verified 03/07/17 03:41) See Comments Sulfa (Sulfonamide Antibiotics) Adverse Reaction (Verified 04/26/16 20:54) Difficulty Breathing Procedures/tests Complete & Pending: Procedures Performed prior 72 hours Category Date Time Status NM beryl perf SPECT multi [NM] Routine Exams 03/07/17 03:24 Taken ECG 12 lead ECG [ECG] AM 0600 Y 03/07/17 06:00 Ordered EV echocardiogram Routine Y 03/07/17 03:23 Completed SP pharm nuclear stress Routine Y 03/07/17 03:23 Completed Date of admission: 03/07/17 01:13 Primary care physician: Mis Drake CNP Consults: 03/07/17 15:12 Consult to Cardiology [CONS] Routine Comment: Consulting Provider: Cardiology Mary Reason for Consult: abnormal stress Time Notified: 15:13 Call Completed: Yes Discharging clinician: Maine Washington Anticipated date of discharge: 03/08/17 - Patient Status Disposition: Home, Self-Care Condition: Good Functional capacity at discharge: independent ambulation Overall status at discharge: patient is back to baseline - Discharge Instructions Follow Up With: Mis Drake CNP [Primary Care Provider] - Additional Instructions: Follow up with your primary care provider in the next 7-10 days for a reevaluation. Get your mammogram done this week. Call scheduling department at Hospital to schedule. Continue your normal home medications. Take your new medications as directed. Stop smoking. Use nicotine patches to help you. Return to the emergency department as needed for any other problems or concerns or if her symptoms return or worsen. - Diet and Activity Activity: resume usual activities as tolerated Diet: advance to your usual diet Hospital course: Ms. Britt is a 36 year old female with past medical history of chronic back pain, left knee pain, anxiety, depression, GERD and LHC without diagnosis of coronary artery disease. She presented to the emergency department with onset of left-sided chest pressure that began while she was at rest at home on the day of admission. She said that the pain radiated through to her back and was almost constant, relieved when she came to the emergency department. Patient also complains of worsening peripheral edema, not only to lower extremities but hands and face, as well. She denies shortness of breath, palpitations, vomiting , diaphoresis. She denies fever, headache, dizziness, vision changes. Chest x-ray was negative. Troponins were negative 3. BNP is negative at 52. Echocardiogram shows normal systolic function with an LVEF of 65-70%, normal diastolic function, normal RV size and function in all wall segments showed normal motion. Pharmacologic stress showed gated EF is 68% with medium sized, moderate intensity, partially reversible perfusion defect involving the basal to midanterior wall. Perfusion worsens with stress particularly in the basal anterior wall. Findings were suggestive of reversible ischemia involving the basal to mid anterior wall. There is also small area of focal uptake which appears to be in the right breast. I have written the patient a prescription for a mammogram with results to primary care nurse practitioner. Patient is also aware of these findings. Ms. Britt was seen by cardiology yesterday and based on her prior history of clean LHC a year ago in [place], initial trial of medical management was recommended. She will follow up with cardiology clinic in 1-2 weeks. She will continue aspirin 81 mg by mouth daily, atorvastatin 40 mg by mouth daily, and Imdur 30 mg by mouth daily. If her symptoms are persistent, an elective [facility] outpatient would be considered. Patient will continue her normal dose of Lasix at home for her peripheral edema. We discussed lifestyle changes including increasing water intake, exercise, and low-sodium diet. She complains of left knee pain and routinely takes narcotic pain medication at home for that. This may be a hindrance to her increasing the amount of exercise. She will need to follow up with her primary care provider for further pain management and evaluation. Patient remains chest pain-free. She has verbalized understanding of discharge plan of care. She has the prescription handwritten for the mammogram. Her vitals and labs are stable and within normal limits. Patient is ready for discharge. Time spent discussing smoking cessation with patient: 3 to 10 minutes - Time Spent with Patient Total time spent providing and/or coordinating discharge services: Less than 30 minutes - Constitutional Vitals: Temp Pulse Resp BP Pulse Ox 98.1 F 71 14 107/69 95 03/08/17 11:01 03/08/17 11:01 03/08/17 11:01 03/08/17 11:01 03/08/17 11:01 General appearance: Present: A&O X 3, pleasant, no acute distress, answers questions appropriately - Head Head exam: Present: normal inspection - Eye Eye exam: Present: normal appearance, conjuntiva pink - ENT ENT exam: Present: mucous membranes moist, normal exam, normal external ear exam - Neck Neck exam general surgery: Present: normal inspection. Absent: lymphadenopathy , tenderness - Respiratory Respiratory exam: Present: CTAB. Absent: rales, respiratory distress, rhonchi, stridor, wheezes - Cardiovascular Cardiovascular exam: Present: RRR, +S1, +S2. Absent: diastolic murmur, systolic murmur - GI/Abdominal GI/Abdominal exam: Present: distended, normal bowel sounds, soft. Absent: hepatomegaly, tenderness - Extremities Exam Extremities exam: Present: normal inspection, warm, radial pulses palpable and symetrical. Absent: pedal edema, tenderness - Neurological Exam Neurological exam: Present: alert, oriented X3, no focal deficits. Absent: facial droop, speech deficit - Skin Skin exam: Present: dry, intact, normal color, warm. Absent: rash
[2017-03-08 13:24] VITALS: BP 106/66
[2017-03-08] MEDS: *HR* OxyCODONE/APAP 10/325 TABLET PO PRN (13:46)
--- NOTE | 2017-03-09 13:03 | Electrocardiograph Report ---
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
== END 2017-03-08 13:56 | disposition home or self-care (01) ==
LOC: 3BNU 21:13 → EMEROO 21:13 → 3BNU 03-07 02:19
PROVIDERS: ADMIT Family Medicine; ATTEND Registered Nurse

== ENCOUNTER 2017-03-25 20:55 | Observation (INO) ==
[2017-03-25] MEDS ORDERED: Nitroglycerin 0.4 MG TAB.SUBL SL ONE (21:21)
[2017-03-25] MEDS ORDERED: Aspirin 81 MG TAB.CHEW PO ONE (21:21)
[2017-03-25 22:35] LABS: Basophils % 0.5 %; Eosinophils # 0.2 K/mcL (0.0-0.6); Eosinophils % 3.2 %; Hematocrit 36.1 % (35.3-44.9); Hemoglobin 12.3 g/dL (11.5-15.4); Immature Granulocytes % 0.5 % (0-4); Lymphocytes # 2.7 K/mcL (0.6-4.6); Lymphocytes % 43.1 %; Mean Corpuscular HGB Conc 34.1 g/dL (31.6-35.5); Mean Corpuscular Hemoglobin 30.1 pg (28.0-33.3); Mean Corpuscular Volume 88.5 fL (83.0-100.0); Mean Platelet Volume 10.6 fL (9.4-12.4); Monocytes # 0.6 K/mcL (0.0-1.3); Monocytes % 8.9 %; Neutrophils # 2.7 K/mcL (1.6-8.9); Platelet Count 190 K/mcL (140-400); Red Blood Count 4.08 M/mcL (3.82-4.97); Red Cell Distribution Width 12.4 % (11.5-14.5); Segmented Neutrophils % 43.8 %
[2017-03-25 22:40] LABS: INR 0.9; Prothrombin Time 9.8 Seconds (9.4-12.1)
[2017-03-25 22:43] LABS: Activated Partial Thrombo Time 33.9 Seconds (26.0-36.0)
[2017-03-25 22:48] LABS: BUN/Creatinine Ratio 7 (6-26); Carbon Dioxide 29 mEq/L (19-29); Chloride 102 mEq/L (98-109); Glucose 84 mg/dL (70-99); Osmolality,Calculated 284 (280-300); Potassium 3.7 mEq/L (3.5-4.5); Sodium 139 mEq/L (136-145); eGFR For African Americans > 60 (> 60); eGFR For Non-African Americans > 60 (> 60)
[2017-03-25 22:49] LABS: Blood Urea Nitrogen 5 mg/dL (7-20)
[2017-03-26] MEDS ORDERED: Furosemide 20 MG/2 ML VIAL IVP ONE (00:30)
[2017-03-26] MEDS ORDERED: Naloxone 0.4 MG/ML INJ IVP PRN (01:28)
--- NOTE | 2017-03-26 01:28 | Emergency Department Note ---
Disposition Clinical Impression: Chest pain Qualifiers: Chest pain type: unspecified Qualified Code(s): R07.9 - Chest pain, unspecified Disposition: Home, Self-Care Condition: Good General Adult HPI - General Chief complaint: ED Chest Pain Stated complaint: "Chest Pressure/SOB/Bilat Legs Swelling" Time Seen by Provider: 03/25/17 21:05 Source: patient Limitations: no limitations Nursing Notes Reviewed: Yes Vital Signs Reviewed: Yes - History of Present Illness HPI Narrative: 36-year-old female who presents with concern for atypical chest pain. Recent extensive cardiac workup including echocardiogram by cardiology here. Now with the same pain as well as lower extremity swelling. No fever or chills. No calf pain. She does admit to generalized lower extremity edema. Pain Scale: 7 - Related Data Home Medications Medication Instructions Recorded Confirmed Butalb/Acetaminophen/Caffeine 1 tab PO Q6H PRN 03/07/17 03/07/17 [Esgic Capsule] Citalopram Hydrobromide [Celexa] 20 mg PO DAILY 03/07/17 03/07/17 Furosemide [Lasix] 20 mg PO DAILY PRN 03/07/17 03/07/17 Indomethacin [Indocin] 25 mg PO TID 03/07/17 03/07/17 Mirtazapine [Remeron] 15 mg PO HS 03/07/17 03/07/17 Omeprazole [PriLOSEC] 20 mg PO DAILY 03/07/17 03/07/17 OxyCODONE/APAP 10/325 [Percocet 1 tab PO Q8HR PRN 03/07/17 03/07/17 10/325 MG] Potassium Chloride [K-Tab ER] 20 meq PO DAILY 03/07/17 03/07/17 Pregabalin [Lyrica] 150 mg PO TID 03/07/17 03/07/17 Riboflavin [Vitamin B-2] 400 mg PO DAILY 03/07/17 03/07/17 carBAMazepine [Tegretol Xr] 400 mg PO BID 03/07/17 03/07/17 clonazePAM [Klonopin] 0.5 mg PO BID PRN 03/07/17 03/07/17 Previous Rx's Medication Instructions Recorded Aspirin 81 mg PO DAILY #30 tab 03/08/17 Atorvastatin [Lipitor] 40 mg PO HS #30 tab 03/08/17 Isosorbide MONOnitrate (24 HR) 30 mg PO DAILY #30 tab 03/08/17 [Imdur] Nicotine Patch [Nicoderm] 21 mg TD DAILY #28 patch 03/08/17 Allergies Allergy/AdvReac Type Severity Reaction Status Date / Time codeine AdvReac Difficulty Verified 03/25/17 21:18 Breathing morphine AdvReac Difficulty Verified 03/25/17 21:18 Breathing NSAIDS (Non-Steroidal AdvReac See Verified 03/25/17 21:18 Anti-Inflamma Comments Sulfa (Sulfonamide AdvReac Difficulty Verified 03/25/17 21:18 Antibiotics) Breathing All systems ED: reviewed and negative except as stated. Past Medical History - Past Medical History Medical history: Reports: kidney stones, myocardial infarction Surgical history: Reports: cholecystectomy, knee replacement Psychiatric history: Reports: no psych history - Social History Smoking Status: Current every day smoker Smokeless Tobacco Status: No Alcohol use: Reports: rarely Drug use: Reports: none Physical Exam - General Limitations: no limitations General appearance: alert - Head Head exam: atraumatic - Eye Eye exam: Present: normal appearance - ENT ENT exam: normal exam, normal oropharynx - Neck Neck exam: Present: normal inspection, full ROM - Chest Chest inspection: Present: normal inspection - Respiratory Respiratory exam: Present: normal lung sounds bilaterally - Cardiovascular Cardiovascular exam: Present: regular rate, normal rhythm - Abdominal Exam Abdominal exam: Present: soft, Non-Tender - Extremities Exam Extremities exam: Present: normal inspection, full ROM - Expanded Lower Extremity Exam Hip/Pelvis exam: Present: normal inspection, full ROM Upper leg exam: Present: normal inspection, full ROM Knee exam: Present: normal inspection, full ROM Lower leg exam: Present: normal inspection, full ROM Ankle exam: Present: normal inspection, full ROM Foot/toe exam: Present: normal inspection, full ROM Neurovascular/Tendon exam: Present: normal capillary refill. Absent: pulse deficit - Back Exam Back exam: Present: normal inspection, full ROM - Neurological Exam Neurological exam: Present: alert, oriented X3 - Psychiatric Psychiatric exam: Present: normal affect - Skin Skin exam: Present: warm, dry - Other Other exam information: There is evidence of pitting lower extremity edema Course Vital Signs Temperature 97.8 F 03/25/17 21:09 Pulse Rate 68 03/25/17 21:09 Respiratory Rate 18 03/25/17 21:09 Blood Pressure 118/71 03/25/17 21:09 O2 Sat by Pulse Oximetry 98 03/25/17 21:09 Temperature 97.8 F 03/25/17 21:09 Pulse Rate 68 03/26/17 01:07 Respiratory Rate 18 03/26/17 01:07 Blood Pressure 117/68 03/26/17 01:07 O2 Sat by Pulse Oximetry 100 03/26/17 01:07 Oxygen Delivery Oxygen Delivery Nasal Cannula Medical Decision Making - [facility] Narrative Medical decision making narrative: 36-year-old female with atypical chest pain. Nitroglycerin and aspirin administered. EKG shows nonspecific T-wave inversions in anterior leads. Nonspecific ST segment changes. Abnormal nonspecific ECG. Cardiac biomarkers negative. Duplex is performed of the lower extremities show no evidence of DVT. Plan to admit for further evaluation. - Medical Records Medical records reviewed: Yes I reviewed the patient's medical records. - Lab Data Lab results reviewed: Yes I reviewed the patient's lab results. Result diagrams: 03/25/17 22:25 03/25/17 22:25 Lab Results 03/25/17 03/25/17 03/25/17 Range/Units 22:25 22:25 22:25 WBC 6.2 (4.3-11.1) K/mcL RBC 4.08 (3.82-4.97) M/mcL Hgb 12.3 (11.5-15.4) g/dL Hct 36.1 (35.3-44.9) % MCV 88.5 (83.0-100.0) fL MCH 30.1 (28.0-33.3) pg MCHC 34.1 (31.6-35.5) g/dL RDW 12.4 (11.5-14.5) % Plt Count 190 (140-400) K/mcL MPV 10.6 (9.4-12.4) fL Immature Gran % 0.5 (0-4) % Seg Neutrophils % 43.8 % Lymphocytes % 43.1 % Monocytes % 8.9 % Eosinophils % 3.2 % Basophils % 0.5 % Neutrophils # 2.7 (1.6-8.9) K/mcL Lymphocytes # 2.7 (0.6-4.6) K/mcL Monocytes # 0.6 (0.0-1.3) K/mcL Eosinophils # 0.2 (0.0-0.6) K/mcL Basophils # 0.0 (0.0-0.2) K/mcL PT 9.8 (9.4-12.1) Seconds INR 0.9 APTT 33.9 (26.0-36.0) Seconds D-Dimer 488 (0-500) ng/mLFEU Sodium 139 (136-145) mEq/L Potassium 3.7 (3.5-4.5) mEq/L Chloride 102 (98-109) mEq/L Carbon Dioxide 29 (19-29) mEq/L BUN 5 L (7-20) mg/dL Creatinine 0.75 (0.57-1.11) mg/dL Est GFR ( Amer) > 60 (> 60) Est GFR (Non-Af Amer) > 60 (> 60) BUN/Creatinine Ratio 7 (6-26) Glucose 84 (70-99) mg/dL Calculated Osmolality 284 (280-300) Calcium 9.0 (8.6-10.8) mg/dL Troponin I (0-0.03) ng/mL B-Natriuretic Peptide (0-100) pg/mL 03/25/17 03/25/17 Range/Units 22:25 Unknown WBC (4.3-11.1) K/mcL RBC (3.82-4.97) M/mcL Hgb (11.5-15.4) g/dL Hct (35.3-44.9) % MCV (83.0-100.0) fL MCH (28.0-33.3) pg MCHC (31.6-35.5) g/dL RDW (11.5-14.5) % Plt Count (140-400) K/mcL MPV (9.4-12.4) fL Immature Gran % (0-4) % Seg Neutrophils % % Lymphocytes % % Monocytes % % Eosinophils % % Basophils % % Neutrophils # (1.6-8.9) K/mcL Lymphocytes # (0.6-4.6) K/mcL Monocytes # (0.0-1.3) K/mcL Eosinophils # (0.0-0.6) K/mcL Basophils # (0.0-0.2) K/mcL PT (9.4-12.1) Seconds INR APTT (26.0-36.0) Seconds D-Dimer (0-500) ng/mLFEU Sodium (136-145) mEq/L Potassium (3.5-4.5) mEq/L Chloride (98-109) mEq/L Carbon Dioxide (19-29) mEq/L BUN (7-20) mg/dL Creatinine (0.57-1.11) mg/dL Est GFR ( Amer) (> 60) Est GFR (Non-Af Amer) (> 60) BUN/Creatinine Ratio (6-26) Glucose (70-99) mg/dL Calculated Osmolality (280-300) Calcium (8.6-10.8) mg/dL Troponin I 0.00 (0-0.03) ng/mL B-Natriuretic Peptide 36 (0-100) pg/mL Critical Care Time Total Critical Care Time: 35 Attestation: Greater than 35 Jung critical care time was resuscitating this acutely ill patient suffering from chest pain having EKG changes as well as requiring nitroglycerin administration. This is excluding billable procedures.
[2017-03-26] MEDS ORDERED: *HR* OxyCODONE/APAP 5/325 TABLET PO ONE (01:31)
[2017-03-26] MEDS ORDERED: clonazePAM 0.5 MG TABLET PO PRN (01:33)
--- NOTE | 2017-03-26 01:49 | Internal Med History&Physical ---
<Eugene Townsend - Last Filed: 03/26/17 01:45> Date of Encounter: 03/26/17 Time of Encounter: 01:45 Assessment and Plan (1) Chest pain Current visit: Yes Status: Acute typical chest pain substernal, worsens with exertion, relieved by nitro started yesterday morning and progressively worsened also noticed acute worsening of LE edema with concomitant facial, abdominal, upper extremity swelling reports 3.5 gallons of fluid intake a day troponin WNL EKG sinus rhtythm with right bundle branch block and t wave inversions v1,v2, v3. No change from previous Echo 02/2017: LVEF 65-70% with normal LV diastolic dysfucntion, no valvular abnormalities, no wall motion abnormalaties Nuclear stress test 02/2017: Reversible defect in the mid basal anterior wall xanthomas b/l around eyes CXR shows interstitial edema BMP within normal limits Plan: lipid panel, tsh, test, cardiology consult cardiac tele continue aspirin, statin, imdur Qualifiers: Chest pain type: chest pain due to myocardial ischemia Ischemic chest pain type: stable angina pectoris Qualified Code(s): I20.8 - Other forms of angina pectoris (2) Swelling of lower extremity Current visit: Yes Status: Acute 2nd to excessive fluid intake patient states she was previously educated on drinking a lot of water due to being on Lasix 3.5 gallons Plan: educated patient on fluid intake restriction of 2-3 L she does not have history of diastolic dysfunction. IV Lasix 40 daily Strict I's and O's UA for analysis of for proteinuria Urine test Daily weight Cardiac diet (3) DVT prophylaxis Current visit: Yes Status: Acute Heparin subcutaneous (4) Tobacco abuse Current visit: Yes Status: Chronic Reports she used to smoke a pack and a half day and is down to half pack a day. Congratulated patient on this decrease in tobacco use. States she was on nicotine patch however this caused her skin irritation rash. Plan: Patient educated on benefits of smoking cessation. (5) Depression with anxiety Current visit: Yes Status: Chronic History of depression and anxiety Stable Continue home meds. Internal Medicine - H&P: HPI Chief complaint: chest pain Admitted From: Home Plans for Post Hospital Care: Home History of present illness: Ms. Britt is a 36 year old female presents from [employer] office secondary to chest pain. His chest pain started this morning located substernally initially 2 out of 10 and progressively worsened, without radiation associated nausea, palpitations, shortness of breath on exertion. Chest pain worsens with exertion and relieved by nitroglycerin. Patient states she has acute worsening of lower extremity edema in the last 48 hours and reports bilateral lower extremity aching pain. She also reports facial, abdominal, or extremity swelling. Reports 3 gallon water intake and half gallon tea intake. Reports adhering to low salt diet. Patient was recently discharged last month after chest pain workup. Her nuclear stress test was positive for reversible perfusion defect involving the basal mid anterior wall. At that time cardiology decided to start patient on medical management as she has had angiographically free left heart catheterization last year. Past Med Surg Social Fam HX - Past Medical History Medical history: kidney stones, myocardial infarction Psychiatric history: no psych history - Past Surgical History Surgical History: cholecystectomy, knee replacement - Social History Smoking Status: Current every day smoker Smokeless Tobacco Status: No Alcohol use: rarely Drug use: none - Family History Mother Living Status: Still Living Hx Family Cardiac Disorders: No Hx Family Respiratory Disorders: Yes (COPD) Hx Family Cancer: No Hx Family GI Disorders: Yes (IBS) Hx Family Endocrine Disorder: Yes (DM) Hx Family Neuromuscular Disorders: No Hx Family Neurologic Disorders: No Hx Family HEENT Disorders: No Hx Family Autoimmune Disorders: No Internal Medicine - H&P: Meds Butalb/Acetaminophen/Caffeine [Esgic Capsule] 1 tab PO Q6H PRN 03/07/17 [History ] Citalopram Hydrobromide [Celexa] 20 mg PO DAILY 03/07/17 [History] Furosemide [Lasix] 20 mg PO DAILY PRN 03/07/17 [History] Indomethacin [Indocin] 25 mg PO TID 03/07/17 [History] Mirtazapine [Remeron] 15 mg PO HS 03/07/17 [History] Omeprazole [PriLOSEC] 20 mg PO DAILY 03/07/17 [History] OxyCODONE/APAP 10/325 [Percocet 10/325 MG] 1 tab PO Q8HR PRN 03/07/17 [History] Potassium Chloride [K-Tab ER] 20 meq PO DAILY 03/07/17 [History] Pregabalin [Lyrica] 150 mg PO TID 03/07/17 [History] Riboflavin [Vitamin B-2] 400 mg PO DAILY 03/07/17 [History] carBAMazepine [Tegretol Xr] 400 mg PO BID 03/07/17 [History] clonazePAM [Klonopin] 0.5 mg PO BID PRN 03/07/17 [History] Aspirin 81 mg PO DAILY #30 tab 03/08/17 [Rx] Atorvastatin [Lipitor] 40 mg PO HS #30 tab 03/08/17 [Rx] Isosorbide MONOnitrate (24 HR) [Imdur] 30 mg PO DAILY #30 tab 03/08/17 [Rx] Nicotine Patch [Nicoderm] 21 mg TD DAILY #28 patch 03/08/17 [Rx] Allergies codeine Adverse Reaction (Verified 03/25/17 21:18) Difficulty Breathing morphine Adverse Reaction (Verified 03/25/17 21:18) Difficulty Breathing NSAIDS (Non-Steroidal Anti-Inflamma Adverse Reaction (Verified 03/25/17 21:18) See Comments Sulfa (Sulfonamide Antibiotics) Adverse Reaction (Verified 03/25/17 21:18) Difficulty Breathing All Systems PM: A 10-system review of systems was performed and is negative for pertinent findings except as documented above in the HPI. Review of systems: Constitutional: Denies fever, chills HEENT: Denies headache, vision changes, neck pain, sore throat, rhinorrhea reports facial swelling Heart: Reports chest pain and palpitations Lungs: Reports shortness of breath and cough Abdomen: Denies abdominal pain nausea vomiting diarrhea. Reports abdominal swelling Back: Denies back pain Endocrine: Reports polyuria and polydipsia Kidney: Denies dysuria, hematuria Extremities: Reports upper and lower every swelling, denies pain Neuro: Denies numbness, and tingling - Constitutional Vitals: Temp Pulse Resp BP Pulse Ox 97.8 F 68 18 117/68 100 03/25/17 21:09 03/26/17 01:07 03/26/17 01:07 03/26/17 01:07 03/26/17 01:07 - Other Additional findings: General: Moderate distress, awake and alert HEENT: Head atraumatic, normocephalic, EOMI, PERRLA, neck nontender to palpation , absent Lymphadenopathy, Moist Mucous Membranes, xanthomatous lesions bilaterally around eyes Heart: Regular rate and rhythm with no murmur Lungs: Diminished lung sounds bilaterally, fine crackles Abdomen: Soft nontender, nondistended positive bowel sounds Extremities: 2+ pedal edema bilaterally Neuro: Cranial nerves II through XII intact, sensation equal bilaterally, strength upper and lower extremity 5/5, alert oriented 3 Vascular: Pedal and radial pulses 2 out of 4 Internal Med - H&P Results - Labs CBC & Chem 7: 03/25/17 22:25 03/25/17 22:25 <Juanjose Corcoran - Last Filed: 03/26/17 06:29> Date of Encounter: 03/26/17 Internal Medicine - H&P: HPI History of present illness: Ms. Britt is a 36 year old female All Systems PM: A 10-system review of systems was performed and is negative for pertinent findings except as documented above in the HPI. - Constitutional Vitals: Temp Pulse Resp BP Pulse Ox 97.8 F 62 16 101/66 95 03/26/17 05:42 03/26/17 05:42 03/26/17 05:42 03/26/17 05:42 03/26/17 05:42 Internal Med - H&P Results - Labs CBC & Chem 7: 03/25/17 22:25 03/26/17 02:54 Labs: BMP 03/26/17 02:54 Sodium 142 Potassium 3.7 Chloride 101 Carbon Dioxide 32 H BUN 5 L Creatinine 0.76 Glucose 88 Calcium 9.3 Liver Function 03/26/17 Range/Units 02:54 Total Bilirubin < 0.3 (0.2-1.2) mg/dL AST 24 (5-34) Units/L ALT 12 (0-55) Units/L Alkaline Phosphatase 172 H (38-126) Units/L Albumin 3.6 (3.5-5.0) g/dL Urine 03/26/17 Range/Units 02:21 Urine Color Yellow (Yellow) Urine Clarity Clear (Clear) Urine pH 7.0 (5.0-8.0) pH Units Ur Specific [place] 1.008 L (1.010-1.025) Urine Protein Negative (Neg-Trace) mg/dL Urine Glucose (UA) Normal (Normal) mg/dL - Attending Attestation I examined this patient and my medical decision-making was reviewed with the Resident Physician, Dr. Townsend. I agree with the documented findings, disposition and treatment plan as described except to the extent set forth below. I have independently obtained history and examined the patient and my findings are summarized below: She presented to the hospital for evaluation of lower extremity swelling. She reports drinking several gallons of water daily. She follows a sodium restricted diet. On exam she is in no acute distress, heart exam reveals regular S1-S2 with no murmur. Lungs are clear. Abdomen is soft. There is 2+ lower extremity pitting edema. Plan: I have counseled patient regarding moderating fluid intake and continuing a strict sodium restricted diet. We will consult cardiology Start IV Lasix. Fluid restriction. Trend troponin.
[2017-03-26 03:03] LABS: Bilirubin,Urine Negative (Negative); Blood,Urine Negative (Negative); Clarity,Urine Clear (Clear); Color,Urine Yellow (Yellow); Glucose,Urine (UA) Normal (Normal); Ketones,Urine Negative (Negative); Nitrite,Urine Negative (Negative); Protein,Urine Negative (Neg-Trace); Specific Gravity,Urine 1.008 (1.010-1.025); Urobilinogen,Urine Normal (Normal)
[2017-03-26 03:04] LABS: Leukocyte Esterase,Urine Negative (Negative)
[2017-03-26 03:45] LABS: Chol/HDL Ratio 3.5 (0-4.9); Phosphorous 4.2 mg/dL (2.3-4.7)
[2017-03-26 03:46] LABS: Alanine Aminotransferase 12 Units/L (0-55); Albumin 3.6 g/dL (3.5-5.0); Albumin/Globulin Ratio 1.1 (1.1-2.2); Alkaline Phosphatase 172 Units/L (38-126); Aspartate Amino Transferase 24 Units/L (5-34); BUN/Creatinine Ratio 7 (6-26); Calcium 9.3 mg/dL (8.6-10.8); Carbon Dioxide 32 mEq/L (19-29); Chloride 101 mEq/L (98-109); Globulin 3.4 g/dL (2.4-3.5); Glucose 88 mg/dL (70-99); Osmolality,Calculated 291 (280-300); Potassium 3.7 mEq/L (3.5-4.5); Sodium 142 mEq/L (136-145); eGFR For African Americans > 60 (> 60); eGFR For Non-African Americans > 60 (> 60)
[2017-03-26 03:47] LABS: Bilirubin,Total < 0.3 mg/dL (0.2-1.2); Blood Urea Nitrogen 5 mg/dL (7-20)
[2017-03-26 05:14] LABS: Thyroid Stimulating Hormone 3.032 mcIU/mL (0.350-4.840)
[2017-03-26] MEDS: *HR* Heparin 5,000 UNIT/ML VIAL SQ SCH ×2 (06:26→17:30)
--- NOTE | 2017-03-26 08:56 | Event Note ---
<Sukumar Mota - Last Filed: 03/26/17 13:21> Date of Encounter: 03/26/17 Time of Encounter: 08:25 Pt seen and examined by me at bedside. Patient reports pressure everywhere. She reports being tired and urinating a lot. On exam patient has 2+ pitting adema, b /l LE. Reduced breath sounds through out. No Wheezes, rhonnchi, or rales. Pt had CT chest today which did not show and pulmonary edema, just some nonspecific ground glass infiltrates. Per Cardiology recommendations, patient will have LHC. Pt made NPO. Restarted patient's home Headache and pain medications. Continue current management. <Lefty Vanegas - Last Filed: 03/26/17 18:28> Date of Encounter: 03/26/17 Pt admitted earlier this AM with chest pain and edema. She is to have cardiac cath today. Exam Alert and comfortable Will await LHC results and plan further.
[2017-03-26] MEDS: CarBAMazepine XR (12 hr) 100 MG TAB PO SCH ×2 (09:46→20:59)
[2017-03-26] MEDS: Aspirin 81 MG TAB.CHEW PO SCH (09:47)
[2017-03-26] MEDS: Pregabalin 75 MG CAPSULE PO SCH ×3 (09:47→20:58)
[2017-03-26] MEDS: Furosemide 40 MG/4 ML VIAL IVP SCH (09:47)
[2017-03-26] MEDS: Isosorbide MONOnitrate (24 HR) 30 MG TAB.ER.24H PO SCH (09:47)
[2017-03-26] MEDS ORDERED: *HR* OxyCODONE/APAP 5/325 TABLET PO PRN (10:18)
[2017-03-26] MEDS ORDERED: Acetaminophen/Butalbital/CaffeineTABLET PO PRN (10:22)
--- NOTE | 2017-03-26 10:31 | Cardiology Consult Note ---
Addendum entered and electronically signed by Noreen Britt CNP 03/26/17 12: 42: Per discussion with , plan for left heart cath for abnormal stress test. Discussed with patient. Risks versus benefits of LHC explained to patient. Patient states understanding and agreeable to proceed with [facility]. Further recommendations pending [facility]. Original Note: <Noreen Britt - Last Filed: 03/26/17 10:46> Date of Encounter: 03/26/17 Time of Encounter: 08:30 Assessment and Plan (1) Chest heaviness Current Visit: No Status: Acute Per cardiology: -Patient presents for evaluation after my recommendations in cardiology clinic. -Patient having constant chest "pressure" -Patient states pressure worsens with excertion. -Patient also admits to associated shortness of breath and extreme fatigue. -Recent abnormal stress test. -Troponin negative -ECG unchanged from baseline. -Cath in 2014 at hospital in [place]. -Echo 03/07/17 with LVEF 65-70%, no significant valvular dysfunction, no diastolic dysfunction, all garcía with normal motion. -On asa, statin, imdur. Was not taking beta zainab due to hypotension and history of bradycardia. -Will request stat records from hospital in [place]. -Will keep NPO for now. -Trend troponins. (2) Abnormal stress test Current Visit: Yes Status: Acute Per cardiology: -Recent abnormal stress test 03/07/17 with gated LVEF 68%, medium sized moderate intensity partially reversible defect involving basal-mid anterior wall. Appears to be some breast attenuation artifact, however perfusion worsens with stress. Findings suggestive of reversible ischemia involving basal-mid anterior wall. Small are of focal uptake appears to be in right breast, mammogram was recommended. -Patient states she will obtain mammogram in outpatient setting. -Will trend troponin. -Will obtain records from [facility]. (3) Peripheral edema Current Visit: Yes Status: Acute Per cardiology: -Worsening peripheral edema noted. -On lasix IV per primary service. -Patient is net negative 400ml. -Will continue to monitor. (4) Tobacco abuse Current Visit: Yes Status: Chronic Per cardiology: -KNown chronic tobbacco abuse. -Has smoked 1ppd for 15 years, has recent cut back to 0.5ppd. -Patient plans on quitting smoking. -I spent 3-5 minutes reviewing smoking cessation education with patient. Discussion w patient/family: The assessment and plan as outlined above was discussed with the patient who expressed understanding and agreement. All questions were answered. Thank you for involving us in the care of your patient. Please call with any questions. Discussed and reviewed with . History of Present Illness Consult date: 03/26/17 Requesting physician: Eugene Townsend Consult reason: lower extremity edema, chest pain Chief complaint: chest pain, swelling History of present illness: Ms. Britt is a 36 year old female with a relevant past medical history of DM, anxiety, depression, tobacco abuse. Patient presented to [place] [facility]ology clinic yesterday and was seen by myself. At that visit, patient was having active chest pain and worsening edema. I recommended ER evaluation for patient. She needed to take care of at home and came to ER last night. Patient states she was still having chest "pressure" when she presented to ER. Patient denies any current chest pain/pressure. Pateint admits to becoming more short of breath here lately. Patient also states she check her SpO2 at home and noted it to be 88%. Patient reports worsening generalized edema. Patient admits to extreme fatigue. Patient states she cannot do anything at home due to fatigue. Past Med Surg Social Fam HX - Past Medical History Attestation: Yes The following information was validated with the patient. Source: patient, old records reviewed Medical history: diabetes, kidney stones, myocardial infarction Psychiatric history: anxiety, depression - Past Surgical History Surgical History: cholecystectomy, hysterectomy, knee replacement - Social History Smoking Status: Current every day smoker Smokeless Tobacco Status: No Alcohol use: rarely Drug use: none - Family History Mother Adopted: No Living Status: Still Living Hx Family Cardiac Disorders: No Hx Family Respiratory Disorders: Yes (COPD) Hx Family Cancer: No Hx Family GI Disorders: Yes (IBS) Hx Family Endocrine Disorder: Yes (DM) Hx Family Neuromuscular Disorders: No Hx Family Neurologic Disorders: No Hx Family HEENT Disorders: No Hx Family Autoimmune Disorders: No Medications and Allergies Butalb/Acetaminophen/Caffeine [Esgic Capsule] 1 tab PO Q6H PRN 03/07/17 [History ] Citalopram Hydrobromide [Celexa] 20 mg PO DAILY 03/07/17 [History] Furosemide [Lasix] 20 mg PO DAILY PRN 03/07/17 [History] Indomethacin [Indocin] 25 mg PO TID 03/07/17 [History] Mirtazapine [Remeron] 15 mg PO HS 03/07/17 [History] Omeprazole [PriLOSEC] 20 mg PO DAILY 03/07/17 [History] OxyCODONE/APAP 10/325 [Percocet 10/325 MG] 1 tab PO Q8HR PRN 03/07/17 [History] Potassium Chloride [K-Tab ER] 20 meq PO DAILY 03/07/17 [History] Pregabalin [Lyrica] 150 mg PO TID 03/07/17 [History] Riboflavin [Vitamin B-2] 400 mg PO DAILY 03/07/17 [History] carBAMazepine [Tegretol Xr] 400 mg PO BID 03/07/17 [History] clonazePAM [Klonopin] 0.5 mg PO BID PRN 03/07/17 [History] Aspirin 81 mg PO DAILY #30 tab 03/08/17 [Rx] Atorvastatin [Lipitor] 40 mg PO HS #30 tab 03/08/17 [Rx] Isosorbide MONOnitrate (24 HR) [Imdur] 30 mg PO DAILY #30 tab 03/08/17 [Rx] Nicotine Patch [Nicoderm] 21 mg TD DAILY #28 patch 03/08/17 [Rx] Allergies codeine Adverse Reaction (Verified 03/25/17 21:18) Difficulty Breathing morphine Adverse Reaction (Verified 03/25/17 21:18) Difficulty Breathing NSAIDS (Non-Steroidal Anti-Inflamma Adverse Reaction (Verified 03/25/17 21:18) See Comments Sulfa (Sulfonamide Antibiotics) Adverse Reaction (Verified 03/25/17 21:18) Difficulty Breathing All Systems Review: A 10-system review of systems was performed and is negative for pertinent findings except as documented above in the HPI. - Constitutional Constitutional: fatigue - Cardiovascular Cardiovascular: as per HPI, chest pain at rest, chest pain with exertion, dyspnea on exertion, leg edema, other (Generalized edema. ) Physical Examination Vital Signs, Last 4 Hours Temp Pulse Resp BP Pulse Ox 03/26/17 07:21 97.5 F L 65 15 101/63 95 General: Conversant, No Apparent Distress HEENT: Atraumatic, Normocephaly, Mucus Membranes Moist Neck: No JVD, Normal carotid pulses Cardiac: Reg Rate and Rhythm, Normal S1 and S2, No Murmur Lungs: Normal Breath Sounds, No Wheeze, Rales, Rhonchi Neuro: Alert and responsive, No focal deficits noted Abdomen: Soft, Non-Tender Skin: No rashes noted on visualized skin Musculoskeletal: No Chest Wall Tenderness Extremities: No Clubbing, No Cyanosis, Normal Pulses, Other (Generalized edema noted. 2+ pitting edema noted to bilateral lower extremities. ) Results 03/25/17 22:25 03/26/17 02:54 Lab Results Impressions Chest X-Ray 03/25/17 21:21 IMPRESSION: Question interstitial edema, which could be inflammatory or less likely secondary to congestive heart failure. No focal infiltrate identified. D/ / Nam James MD / Nam James MD Interpreting Provider: Nam James MD Chest CT 03/26/17 08:30 IMPRESSION: 1. No evidence of pulmonary edema. 2. Vague ground-glass densities within the right upper lobe representing nonspecific inflammation or infection. D/ : / 03/26/2017 09:20:46 Charlie Horan MD / adrián Interpreting Provider: Charlie Horan MD Active Medications Acetaminophen/Butalbital/Caffeine (Fioricet) 1 each PO Q6HR PRN; Protocol PRN Reason: Headache Stop: 09/25/17 10:23 Aspirin (Aspirin) 81 mg PO DAILY INGRID Stop: 09/25/17 09:01 Last Admin: 03/26/17 09:47 Dose: 81 mg Atorvastatin Calcium (Lipitor) 40 mg PO HS INGRID Stop: 09/25/17 21:01 Carbamazepine (Tegretol Xr) 400 mg PO BID INGRID Stop: 09/25/17 09:01 Last Admin: 03/26/17 09:46 Dose: 400 mg Citalopram Hydrobromide (Celexa) 20 mg PO DAILY INGRID Stop: 09/25/17 09:01 Last Admin: 03/26/17 09:47 Dose: 20 mg Clonazepam (Klonopin) 0.5 mg PO BID PRN PRN Reason: Anxiety Stop: 09/25/17 01:34 Furosemide (Lasix) 40 mg IVP DAILY [facility] Stop: 09/25/17 09:01 Last Admin: 03/26/17 09:47 Dose: 40 mg Heparin Sodium (Porcine) (Heparin) 5,000 unit SQ Q12HCO [facility] Stop: 09/25/17 06:01 Last Admin: 03/26/17 06:26 Dose: 5,000 unit Isosorbide Mononitrate (Imdur) 30 mg PO DAILY INGRID Stop: 09/25/17 09:01 Last Admin: 03/26/17 09:47 Dose: 30 mg Mirtazapine (Remeron) 15 mg PO HS [facility] Stop: 09/25/17 21:01 Naloxone HCl (Narcan) 0.4 mg IVP Q2MIN PRN PRN Reason: Opioid Reversal Stop: 09/25/17 01:29 Omeprazole (Prilosec) 20 mg PO DAILY@0630 INGRID PRN Reason: Protocol Stop: 09/25/17 06:31 Last Admin: 03/26/17 06:26 Dose: 20 mg Oxycodone/Acetaminophen (Percocet 5/325) 1 each PO Q8HR PRN PRN Reason: Pain Stop: 09/25/17 10:19 Oxycodone/Acetaminophen (Percocet 10/325) 1 each PO Q8HR PRN PRN Reason: Pain Stop: 09/25/17 10:25 Pregabalin (Lyrica) 150 mg PO TID [facility] Stop: 09/25/17 09:01 Last Admin: 03/26/17 09:47 Dose: 150 mg Laboratory Tests 03/25/17 03/25/17 03/25/17 22:25 22:25 Unknown Hgb 12.3 Creatinine AST ALT Troponin I 0.00 B-Natriuretic Peptide 36 Triglycerides Cholesterol LDL Cholesterol, Calc HDL Cholesterol Serum , Qual 03/26/17 03/26/17 03/26/17 02:54 02:54 02:54 Hgb Creatinine 0.76 AST 24 ALT 12 Troponin I B-Natriuretic Peptide Triglycerides 101 Cholesterol 158 LDL Cholesterol, Calc 93 HDL Cholesterol 45 Serum , Qual Negative - Imaging and Cardiology Chest Xray: report reviewed Stress Test: report reviewed Echo: report reviewed - EKG Interpretation EKG results cardiology: personally reviewed (ECG with SR, HR 62. T wave inversions noted in V1, V2, V3, V4. Incomplete left bundle branch block. ECG unchanged from baseline.), other (Telemetry reviewed with average HR 66, sinus rhythm. PACs noted.) Consult Discharge Plan - Plan Referrals: Mis Drake, LILIAN [Primary Care Provider] - <Diane Arellano - Last Filed: 03/26/17 14:19> Date of Encounter: 03/26/17 Assessment and Plan Discussion w patient/family: The assessment and plan as outlined above was discussed with the patient and/or family members who expressed understanding and agreement. All questions were answered. Thank you for involving us in the care of your patient. Please call with any questions. History of Present Illness History of present illness: Ms. Britt is a 36 year old female All Systems Review: A 10-system review of systems was performed and is negative for pertinent findings except as documented above in the HPI. Physical Examination Vital Signs, Last 4 Hours Temp Pulse Resp BP Pulse Ox 03/26/17 12:00 98.3 F 60 13 93/57 91 Results 03/25/17 22:25 03/26/17 02:54 Lab Results 03/26/17 03/26/17 03/26/17 02:54 02:54 10:56 Sodium 142 Potassium 3.7 Chloride 101 Carbon Dioxide 32 H BUN 5 L Creatinine 0.76 Glucose 88 Calcium 9.3 Magnesium 2.0 Total Bilirubin < 0.3 AST 24 ALT 12 Alkaline Phosphatase 172 H Troponin I 0.00 TSH 3.032 - Attending Attestation I examined this patient and my medical decision-making was reviewed with the Resident Physician. I agree with the documented findings, disposition and treatment plan. Ms. Britt presents with chest pain and had an abnormal stress test. Troponins negative and ECG similar to prior without new changes. Risk factors for CAD include diabetes and smoking. She continues to have chest pain. We discussed pursuing a C for evaluation of her symptoms and abnormal stress test. The R/B /A of the procedure were discussed with the patient who expressed understanding and agreement. She wishes to proceed with C.
[2017-03-26] MEDS: *HR* OxyCODONE/APAP 10/325 TABLET PO PRN ×2 (10:38→17:50)
[2017-03-26] MEDS ORDERED: Heparin 1,000 UNITS/500 mL NS 500 ML ONE (13:26)
[2017-03-26] MEDS ORDERED: *HR* Heparin 10,000 UNIT/10 ML VIAL ONE (13:26)
[2017-03-26] MEDS ORDERED: 0.9 % Sodium Chloride 1,000 ML ONE ×2 (13:26→13:34)
[2017-03-26] MEDS ORDERED: Nitroglycerin 1,000 MCG/10 ML VIAL IV ONE (13:54)
[2017-03-26] MEDS ORDERED: *HR* Midazolam HCl 2 MG/2 ML VIAL ONE ×2 (13:59→14:18)
--- NOTE | 2017-03-26 14:11 | Pre-Sedation Evaluation ---
Pre-sedation evaluation - Pre-sedation checklist Date of procedure: 03/26/17 Recent Vitals: Last Vital Signs Temp 98.3 F 03/26/17 12:00 Pulse 60 03/26/17 12:00 Resp 13 03/26/17 12:00 BP 93/57 03/26/17 12:00 Pulse Ox 91 03/26/17 12:00 H&P (including ROS) documented in medical record: Yes Previous reaction to sedatives/anesthetics: Yes; explain in comment (Shortness of breath with morphine,) Dietary Status: No solid food in preceding 4 hrs and no liquid in preceding 2 hrs Airway Assessment: Patient can open mouth completely, TMJ function normal Dentition: No loose teeth or bridges Possible difficult airway: No ASA Classification *see protocol: CLASS II-Mild systemic disease Plan of Care: Pt appropriate candidate for procedure/moderate/conscious sedation
--- NOTE | 2017-03-26 14:48 | Invasive Diagnostic Lab Proc ---
Name: Madhuri Britt Date of Study: 03/26/2017 Date: 1980 Ht: 68.9in Medical Record#: [id number] Age: 36 Wt: 251.55lb Gender: Female BSA: 2.27 Order #: [id number] BMI: 37.26 Physicians Procedure Physician: Mark Jamison DO Referring MD: Referring MD: Staff Name Position Time In Dianne Damico RN Monitor 02:01 PM Edson Storm RT (R) Scrub 02:01 PM Davion Obregon RN Marine Equipment Sales Engineer 02:01 PM Mis Meza RN Marine Equipment Sales Engineer 02:01 PM Indications Indication Abnormal Test - Stress Procedures Performed Procedure L HRT ARTERY/VENTRICLE ANGIO Pre-Procedure Checklist Informed consent is complete signed and on chart. H&P is on chart. ID band is on and ID verified with patient. Patient NPO for procedure The procedure was described for the patient and questions were answered. Blood Pressure: 93/57 ECG is on chart. Rhythm: NSR Plan of Care Patient will tolerate the procedure without complications. Adequate level of comfort will be maintained. Hemodynamics will remain stable Patient will recover from procedure without complications. Respiratory function will be maintained. Cardiac rhythm will remain stable. Patient temperature will be maintained. Patient and/or family have verbalized understanding of the procedure. Patient Education Chief Complaint/Reason for Test: Cardiac Cath Developmental Category: Adult (18-64 years) Developmentally Appropriate for Age: Yes Learning Barriers: None Education Needs: Procedure Education Method: Verbal Information Taught: Cardiac Cath Educational Evaluation: Able to repeat information Intravenous Access Time IV Size Location DC'd Fluid/Drip Rate Units RN 01:44 PM 20g 1 /" Patent On Arrival Rt Hand 0.9NaCl 50 ml/hr Dianne Damico RN Allergies NSAIDS sulfa codeine morphine Vital Signs Time BP (mmHg) HR (bpm) O2 Sat. RR (bpm) LOC 01:44 PM 93 / 57 60 91 % 16 5 = Fully awake and oriented or at pre-proc level 02:02 PM / % 5 = Fully awake and oriented or at pre-proc level 02:02 PM / % 5 = Fully awake and oriented or at pre-proc level 01:57 PM 114 / 75 58 93 % 20 02:02 PM 110 / 71 60 97 % 11 02:07 PM 109 / 74 60 94 % 14 02:12 PM 118 / 68 66 96 % 11 02:17 PM 111 / 79 67 98 % 16 02:22 PM 121 / 81 67 100 % 23 02:17 PM / % 5 = Fully awake and oriented or at pre-proc level Procedural Medications Time Medication Dose Units Method Given By 02:01 PM Oxygen 2 L/min nasal cannula Davion Obregon RN 02:03 PM Versed 2 mg Intravenous Davion Obregon RN 02:14 PM Lidocaine 2% 10 ml Subcutaneous Mark Jamison DO 02:18 PM Versed 1 mg Intravenous Davion Obregon RN 02:19 PM Lidocaine 2% 6 ml Subcutaneous Mark Jamison DO ASA Classification: CLASS II- Mild systemic disease (i.e. well-controlled diabetes, hypertension, asthma, cigarette smoking) Angie Score Preprocedure Postprocedure Activity 2- Moves 4 extremities sustained head lift Activity 2- Moves 4 extremities sustained head lift Circulation 2- SBP +/= 20 points of pre-anesthetic level Circulation 2- SBP +/= 20 points of pre-anesthetic level Consciousness 2- Awake and alert oriented x 3 Consciousness 2- Awake and alert oriented x 3 O2 Saturation 2- Able to maintain O2 satruation of 92% on room air O2 Saturation 2- Able to maintain O2 satruation of 92% on room air Respiratory 2- Able to deep breathe and cough well Respiratory 2- Able to deep breathe and cough well Total Score 10 Total Score 10 Contrast Agent: Isovue Diagnostic Contrast: 50 ml Total Contrast: 50 ml Fluoro Dose: 201 mGy Procedure Log Time Note Enter By 01:43 PM CathStat 01:56 PM Vitals capture started with the following parameters, Patient=Adult, Interval=5 min, Initial Ijqzmzxi=763 mmHg, Deflation Rate=5 mmHg, Cuff placed on Right Arm 01:57 PM HR=58 bpm, DOYK=720/75 mmhg, SpO2=93.0 %, Resp=20 B/min, Comment=SR 01:57 PM Recorded ECG: HR=58 Condition=Condition 1 02:01 PM Pt arrived to experimental machining lab manager 2 at 14:01 tsites 02:01 PM Dianne Damico RN Position: Monitor Time in: 14:01 tsites 02:01 PM Edson Storm RT (R) Position: Scrub Time in: 14:01 tsites 02:01 PM Sabas, Davion RN Position: Marine Equipment Sales Engineer Time in: 14: tsites 02:01 PM Mis Meza RN Position: Marine Equipment Sales Engineer Time in: 14:01 tsites 02:01 PM Patient charges- Angio tray pack, Navilyst 3mm J, Pulse Oximetry and ACIST tubing and transducer tsites 02:01 PM Case Delayed No tsites 02:01 PM Hair removed from procedure site in procedure lab using clippers. Bilateral groin prepped with Chloraprep by Dianne Damico RN, safety strap applied then patient was draped. Skin intact. tsites 02: PM Physician arrived 14: tsites 02: PM ASA Class CLASS II- Mild systemic disease (i.e. well-controlled diabetes, hypertension, asthma, cigarette smoking) tsites 02: PM Meet and greet completed tsites 02: PM Sign in performed according to hospital policy. tsites 02:01 PM Procedure start 14: tsites 02:02 PM Time: 14:01 Oxygen on at 2 L/min per nasal cannula by Davion Obregon RN tsites 02:02 PM Time: 14:02 Patient comfortable and pain free: Yes tsites 02:02 PM Time: 14:02LOC: 5 = Fully awake and oriented or at pre-proc level tsites 02:02 PM HR=60 bpm, PSKX=656/71 mmhg, SpO2=97.0 %, Resp=11 B/min, Comment=SR 02:02 PM Clinical Presentation: Unstable angina tsites 02:02 PM Pressure channel 2 zeroed. 02:03 PM Time: 14:03 Versed 2 mg Intravenous Given by Davion Obregon RN tsites 02:07 PM HR=60 bpm, NIOM=395/74 mmhg, SpO2=94.0 %, Resp=14 B/min, Comment=SR 02:12 PM HR=66 bpm, LUEL=054/68 mmhg, SpO2=96.0 %, Resp=11 B/min, Comment=SR 02:13 PM Time out performed according to hospital policy [email or web address] 02:14 PM Pressure channel 2 zeroed. 02:15 PM Time: 14:14 10 ml Lidocaine 2% to right groin Subcutaneous Given by Mark Jamison DO [email or web address] 02:17 PM Micro-Introducer Kit utilized for sheath placement [email or web address] 02:17 PM Access obtained by percutaneous puncture. 6Fr 10cm Terumo [place] sheath placed in right Femoral artery. [id number] [email or web address] 02:17 PM HR=67 bpm, PJGK=329/79 mmhg, SpO2=98.0 %, Resp=16 B/min, Comment=SR 02:17 PM Time: 14:02LOC: 5 = Fully awake and oriented or at pre-proc level [email or web address] 02:17 PM Time: 14:02 Patient comfortable and pain free: Yes [email or web address] 02:17 PM 6Fr FR 4 catheter inserted over the wire DN [email or web address] 02:17 PM 0.035 145cm Navilyst 3mmJ wire [id number] [email or web address] 02:18 PM Recorded Pressure: LV, HR=85, Condition=Condition 1 (Left Ventricle) LV 80/14/15 02:18 PM Recorded Pressure: LV, Ao, HR=69, Condition=Condition 1 (Left Ventricle) LV 105/1/14, (Aorta) Ao 126/45/82 02:19 PM Time: 14:18 Versed 1 mg Intravenous Given by Davion Obregon RN [email or web address] 02:19 PM RCA angiography performed in multiple views. [email or web address] 02:19 PM Coronary Dominance: right [email or web address] 02:19 PM Time: 14:19 6 ml Lidocaine 2% to right groin Subcutaneous Given by Mark Jamison DO [email or web address] 02:20 PM Catheter removed [email or web address] 02:20 PM 6Fr FL 4 catheter inserted over the wire DN [email or web address] 02:21 PM LCA angiography performed in multiple views. [email or web address] 02:21 PM Recorded Pressure: Ao, HR=66, Condition=Condition 1 (Aorta) Ao 105/63/80 02:22 PM Recorded Pressure: Ao, HR=63, Condition=Condition 1 (Aorta) Ao 119/66/88 02:22 PM HR=67 bpm, KZQI=382/81 mmhg, HuW7=721 %, Resp=23 B/min 02:22 PM Catheter removed [email or web address] 02:22 PM Wire removed [email or web address] 02:23 PM Procedure completed at 14:23 [email or web address] 02:23 PM Sign out completed: Radiation Dose 201.49 mGy Fluoro Time: 1.1 Isovue 370 - 200ml contrast 50 ml given by Mark Jamison, DO. Complications: NoneCardiac Rehab Consult needed: NoConfirmed administered medications: Yes [email or web address] 02:23 PM Isovue 370 - 200ml,1 Bottle(s) used. [email or web address] 02:23 PM Arterial sheath pulled, V+Pad closure device used and was Successful 15 S/N. [email or web address] 02:23 PM Post ECG NSR [email or web address] 02:23 PM Post Blood Pressure 121/81 [email or web address] 02:23 PM 14:23 Post Pulses Bilateral DP & PT 2+ [email or web address] 02:23 PM Information taught Cardiac Cath [email or web address] 02:24 PM Education needs Procedure, Plan of Care, and Responsibilities of Patient in Care [email or web address] 02:24 PM Learning barriers :None [email or web address] 02:24 PM Education Methods Verbal [email or web address] 02:24 PM Education evaluation Able to repeat information [email or web address] 02:24 PM Family placed in consult room. [email or web address] 02:32 PM Time: 14:17 Patient comfortable and pain free: Yes [email or web address] 02:32 PM Time: 14:17LOC: 5 = Fully awake and oriented or at pre-proc level [email or web address] 02:32 PM Report given to Pat LANG Pt taken to 2A Room #62. 14:32 [email or web address] 02:40 PM Site status No bleeding/hematoma - Rt Groin as reported by Davion Obregon RN at 14:40 [email or web address] 02:40 PM Opsite applied [email or web address] 02:40 PM Patient out of room: 14:40 [email or web address] Complications Complication None Hemodynamics Pressures Site Systolic/A Wave Diastolic/V Wave Mean LV 80 14 15 LV 105 1 14 AO 126 45 82 AO 105 63 80 AO 119 66 88 Post Procedure Information Blood Pressure: 121/81 mmHg Rhythm: NSR Post procedural instructions were not given Site Checks Time Location Status Staff Sheath In? Note 02:40 PM Rt Groin No bleeding/hematoma Davion Obregon RN Pulses Time Site Pre-Procedure Post-Procedure Note 03/26/2017 1:44:00 PM Bilateral DP & PT 2+ 2:23:00 PM Bilateral DP & PT 2+ Updated by Kellen Ledezma RT (R) on 03/26/2017 2:40:32 PM Kellen Ledezma RT electronically signed on 03/26/2017 2:41:43 PM with status of Final
[2017-03-26] MEDS: 0.9 % Sodium Chloride 1,000 ML IVC SCH ×2 (15:02→23:47)
--- NOTE | 2017-03-26 15:34 | Event Note ---
Date of Encounter: 03/26/17 Time of Encounter: 15:30 - Cardiology Event Note Coronary arteries are angiographically normal--please refer to [facility] report. Chest discomfort likely not cardiac in etiology, will defer further evaluation to primary service. Recommend care of cath site education prior to discharge. No further recommendations from Cardiology. Will sign-off.
--- NOTE | 2017-03-26 15:36 | Electrocardiograph Report ---
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
--- NOTE | 2017-03-26 19:18 | Venous Imaging Report ---
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 Recommendations: Preliminary given to Dr Morse in ED. Findings Venous Duplex Results: Right: Venous imaging of the lower extremity reveals full patency and normal vessel compressibility of the right distal iliac, right common femoral, right superficial femoral, right popliteal, right posterior tibial, right peroneal, right great saphenous and right lesser saphenous. Doppler signals in the evaluated veins were normal. Left: Venous imaging of the lower extremity reveals full patency and normal vessel compressibility of the left distal iliac, left common femoral, left superficial femoral, left popliteal, left posterior tibial, left peroneal, left great saphenous and left lesser saphenous. Doppler signals in the evaluated veins were normal. Prior Study: No prior study available for comparison. Lower Extremity Venous Duplex Side Vein Compress Spontaneous Flow Augment Diameter (cm) Depth (cm) Right Distal Iliac Normal Yes Phasic Yes Right Common Femoral Normal Yes Phasic Yes Right Superficial Femoral Normal Yes Phasic Yes Right Popliteal Normal Yes Phasic Yes Right Posterior Tibial Normal Yes Phasic Yes Right Peroneal Normal Yes Phasic Yes Right Great Saphenous Normal Yes Phasic Yes Right Lesser Saphenous Normal Yes Phasic Yes Left Distal Iliac Normal Yes Phasic Yes Left Common Femoral Normal Yes Phasic Yes Left Superficial Femoral Normal Yes Phasic Yes Left Popliteal Normal Yes Phasic Yes Left Posterior Tibial Normal Yes Phasic Yes Left Peroneal Normal Yes Phasic Yes Left Great Saphenous Normal Yes Phasic Yes Left Lesser Saphenous Normal Yes Phasic Yes Updated by Renard Castellano MD, FACS on 03/26/2017 7:11:32 PM Renard Castellano MD electronically signed on 03/26/2017 7:11:56 PM with status of Final
[2017-03-26] MEDS ORDERED: Mirtazapine 15 MG TABLET PO SCH (21:00)
[2017-03-27] MEDS: *HR* OxyCODONE/APAP 10/325 TABLET PO PRN (04:47)
[2017-03-27 05:04] LABS: Hematocrit 39.5 % (35.3-44.9); Hemoglobin 12.9 g/dL (11.5-15.4); Mean Corpuscular HGB Conc 32.7 g/dL (31.6-35.5); Mean Corpuscular Hemoglobin 29.3 pg (28.0-33.3); Mean Corpuscular Volume 89.8 fL (83.0-100.0); Mean Platelet Volume 10.5 fL (9.4-12.4); Platelet Count 170 K/mcL (140-400); Red Cell Distribution Width 12.7 % (11.5-14.5)
[2017-03-27 05:15] LABS: BUN/Creatinine Ratio 10 (6-26); Blood Urea Nitrogen 7 mg/dL (7-20); Calcium 8.8 mg/dL (8.6-10.8); Carbon Dioxide 27 mEq/L (19-29); Chloride 106 mEq/L (98-109); Glucose 75 mg/dL (70-99); Osmolality,Calculated 289 (280-300); Potassium 4.1 mEq/L (3.5-4.5); Sodium 141 mEq/L (136-145); eGFR For African Americans > 60 (> 60); eGFR For Non-African Americans > 60 (> 60)
[2017-03-27] MEDS: *HR* Heparin 5,000 UNIT/ML VIAL SQ SCH (05:50)
[2017-03-27 07:20] VITALS: BP 118/68
--- NOTE | 2017-03-27 09:00 | Discharge Summary ---
<Sukumar Mota - Last Filed: 03/27/17 11:08> Date of Encounter: 03/27/17 Time of Encounter: 08:00 - Discharge Diagnosis (1) Swelling of lower extremity Priority: Secondary Status: Acute (2) Tobacco abuse Priority: Secondary Status: Chronic (3) Chest pain Priority: Primary Status: Acute Qualifiers: Chest pain type: unspecified Qualified Code(s): R07.9 - Chest pain, unspecified (4) Depression with anxiety Priority: Secondary Status: Chronic (5) Abnormal stress test Priority: Secondary Status: Acute - Discharge Medications Prescriptions: OxyCODONE/APAP 10/325 [Percocet 10/325 MG] 1 tab PO Q8HR PRN #9 PRN Reason: Pain Home Medications: Butalb/Acetaminophen/Caffeine [Esgic Capsule] 1 tab PO Q6H PRN 03/07/17 [History ] Citalopram Hydrobromide [Celexa] 20 mg PO DAILY 03/07/17 [History] Furosemide [Lasix] 20 mg PO DAILY PRN 03/07/17 [History] Indomethacin [Indocin] 25 mg PO TID 03/07/17 [History] Mirtazapine [Remeron] 15 mg PO HS 03/07/17 [History] Omeprazole [PriLOSEC] 20 mg PO DAILY 03/07/17 [History] Potassium Chloride [K-Tab ER] 20 meq PO DAILY 03/07/17 [History] Pregabalin [Lyrica] 150 mg PO TID 03/07/17 [History] Riboflavin [Vitamin B-2] 400 mg PO DAILY 03/07/17 [History] carBAMazepine [Tegretol Xr] 400 mg PO BID 03/07/17 [History] clonazePAM [Klonopin] 0.5 mg PO BID PRN 03/07/17 [History] Aspirin 81 mg PO DAILY #30 tab 03/08/17 [Rx] Atorvastatin [Lipitor] 40 mg PO HS #30 tab 03/08/17 [Rx] Isosorbide MONOnitrate (24 HR) [Imdur] 30 mg PO DAILY #30 tab 03/08/17 [Rx] Nicotine Patch [Nicoderm] 21 mg TD DAILY #28 patch 03/08/17 [Rx] OxyCODONE/APAP 10/325 [Percocet 10/325 MG] 1 tab PO Q8HR PRN #9 03/27/17 [Rx] Allergies/Adverse Reactions: Allergies codeine Adverse Reaction (Verified 03/25/17 21:18) Difficulty Breathing morphine Adverse Reaction (Verified 03/25/17 21:18) Difficulty Breathing NSAIDS (Non-Steroidal Anti-Inflamma Adverse Reaction (Verified 03/25/17 21:18) See Comments Sulfa (Sulfonamide Antibiotics) Adverse Reaction (Verified 03/25/17 21:18) Difficulty Breathing Procedures/tests Complete & Pending: Procedures Performed prior 72 hours Category Date Time Status CT chest w con [CT] Routine Cat Scan 03/26/17 08:30 Draft CL Cardiac Catheterization [CL] Routine Cyber Reverse Engineer 03/26/17 12:42 Ordered CXR: "FINDINGS: There is mild interstitial prominence, greater centrally, similar in comparison the previous exam. No focal infiltrates are found. No pneumothorax. No free air. XR/XR chest 1V portable IMPRESSION: Question interstitial edema, which could be inflammatory or less likely secondary to congestive heart failure. No focal infiltrate identified." CT Chest: "FINDINGS: Mediastinum: The heart size is normal. There is no evidence of pericardial effusion. The aorta demonstrates normal course and caliber. There are no pathologically enlarged intrathoracic or axillary lymph nodes. Lungs/pleura: Central airways are patent. There are vague scattered ground-glass densities within the right upper lobe which are too small to further characterize. Findings may relate to underlying postinfectious or inflammatory origin. There is no evidence of noncalcified nodule or mass. There is no evidence of pulmonary edema. Upper Abdomen: Upper abdomen demonstrates no acute abnormality. Soft Tissues/Bones: No suspicious lytic or blastic osseous lesion. CT/CT chest w con IMPRESSION: 1. No evidence of pulmonary edema. 2. Vague ground-glass densities within the right upper lobe representing nonspecific inflammation or infection." C: "Impression: Coronary arteries are angiographically normal.THe Left Ventricle is normal and has normal contractility, EF 60%" Date of admission: 03/26/17 01:18 Primary care physician: Mis Drake CNP Consults: 03/26/17 01:36 Consult to Cardiology [CONS] Routine Comment: Consulting Provider: Cardiology [place] Reason for Consult: acute worsening of LE edema and chest pain Call Completed: No Discharging clinician: Sukumar Mota Anticipated date of discharge: 03/27/17 - Patient Status Disposition: Home, Self-Care Condition: Good Functional capacity at discharge: independent ambulation Overall status at discharge: patient is progressing back to baseline - Ambulatory Orders Ambulatory Orders: Misc. Order2 Time Frame: 1 Day, Facility: [facility], Location: Pharmacy - Discharge Instructions Instructions: Chest Pain (DC) Follow Up With: Mis Drake CNP [Primary Care Provider] - (office will call patient with an appointment date and time) Forms: ED Satisfaction Letter Additional Instructions: Please follow up with your primary care provider within 1 week of discharge. Please follow up with your dental mechanic as scheduled. Please take all your home medications as prescribed. Please take your Lasix daily. Please drink 3-4 20z water bottles a day for the next two days. After that limit water intake to 2-3 bottles a day. Please return to the hospital if you experience any new or worsening symptoms. - Diet and Activity Activity: resume usual activities as tolerated Diet: advance to your usual diet Interval History: Patient reports improvement in the pressure sensation in her chest and legs. Her peripheral edema has improved from 2+ pitting edema to 1+ pitting edema. Patient reports feeling better enough to go home. patient had LCH yesterday that was clean. Hospital course: Ms. Britt is a 36 year old female c PMHx of MD, DM, Kidney stones, anxiety and Depression who presented to the hospital complaining of pressure like chest pain and worsening BLE edema. Patient reports drink 3 gallons of water a day and a half gallon of tea. Patient reports that when she was started on lasix she was told to drink a lot of water so it wouldn't hurt her kidneys. Patient had a prior Chest Pain cardiac work up in February of this year that was unremarkable except for an area of reversible ischemia involving basal-mid anterior wall. On this admission her EKG was unchanged from baseline and her troponins were negative as was a BNP. CT chest was unremarkable. Cardiology was consulted and performed a LHC on the patient. LHC was clean and showed no blockages. Patient was discharged home and told to reduce her water intake. - Time Spent with Patient Total time spent providing and/or coordinating discharge services: - Constitutional Vitals: Temp Pulse Resp BP Pulse Ox 98.1 F 65 15 118/68 91 03/27/17 07:16 03/27/17 07:16 03/27/17 07:16 03/27/17 07:16 03/27/17 07:16 General appearance: Present: A&O X 3, no acute distress, obese, answers questions appropriately - Eye Eye exam: Present: PERRL - ENT ENT exam: Present: mucous membranes moist - Respiratory Respiratory exam: Present: CTAB. Absent: rales, rhonchi, wheezes - Cardiovascular Cardiovascular exam: Present: RRR, +S1, +S2. Absent: gallop, rubs, systolic murmur - GI/Abdominal GI/Abdominal exam: Present: normal bowel sounds, soft. Absent: tenderness - Extremities Exam Extremities exam: Present: pedal edema (1+ pitting) - Neurological Exam Neurological exam: Present: alert, oriented X3. Absent: speech deficit - Psychiatric Psychiatric exam: Present: normal affect, normal mood - Skin Skin exam: Present: dry, warm <Lefty Vanegas - Last Filed: 03/27/17 19:15> Date of Encounter: 03/27/17 - Discharge Diagnosis (1) Abnormal stress test Status: Acute (2) Chest heaviness Priority: Primary Status: Acute (3) Tobacco abuse Status: Chronic (4) Peripheral edema Priority: Secondary Status: Chronic (5) Depression with anxiety Status: Chronic Procedures/tests Complete & Pending: Procedures Performed prior 72 hours Category Date Time Status CT chest w con [CT] Routine Cat Scan 03/26/17 08:30 Draft CL Cardiac Catheterization [CL] Routine Cyber Reverse Engineer 03/26/17 12:42 Ordered Date of admission: 03/26/17 01:18 Primary care physician: Mis Drake CNP Consults: 03/26/17 01:36 Consult to Cardiology [CONS] Routine Comment: Consulting Provider: Cardiology [place] Reason for Consult: acute worsening of LE edema and chest pain Call Completed: No Hospital course: Ms. Britt is a 36 year old female - Time Spent with Patient Total time spent providing and/or coordinating discharge services: - Constitutional Vitals: Temp Pulse Resp BP Pulse Ox 98.1 F 65 15 118/68 91 03/27/17 07:16 03/27/17 07:16 03/27/17 07:16 03/27/17 07:16 03/27/17 07:16 - Attending Attestation I examined this patient and my medical decision-making was reviewed with the Resident Physician on 03/27/17. I agree with the documented findings, disposition and treatment plan as described except to the extent set forth below. Ms. Britt was admitted for chest pain and edema. She had LHC yesterday and was negative. Her edema has improved. She is afebrile with stable vitals. Exam alert. Comfortable Heart reg No wheeze Trace edema Plan D/C home today Decrease fluids SHIVANI hose
[2017-03-27] MEDS: Aspirin 81 MG TAB.CHEW PO SCH (09:12)
[2017-03-27] MEDS: Pregabalin 75 MG CAPSULE PO SCH (09:12)
[2017-03-27] MEDS: Isosorbide MONOnitrate (24 HR) 30 MG TAB.ER.24H PO SCH (09:12)
[2017-03-27] MEDS: CarBAMazepine XR (12 hr) 100 MG TAB PO SCH (09:13)
[2017-03-27] MEDS: Furosemide 40 MG/4 ML VIAL IVP SCH (09:22)
[2017-03-27] MEDS ORDERED: Furosemide 40 MG TABLET PO SCH (09:30)
== END 2017-03-27 11:20 | disposition home or self-care (01) ==
LOC: EMEROO 20:55 → 2ANU 20:55 → SUATTDRO 03-26 01:18 → 2ANU 03-26 01:49
PROVIDERS: ADMIT Internal Medicine; ATTEND Internal Medicine